=== PATIENT | female | born 1975 | race African-American/Black ===

== ENCOUNTER 2017-06-14 01:11 | Inpatient (IN) | payer MEDICAID, OTHER, SELFPAY ==
[2017-06-14] MEDS ORDERED: Mag-Al 1200 mg/1200 mg/30 ML UDCUP ONE (01:39)
[2017-06-14] MEDS ORDERED: Lidocaine Viscous Sol 2% 15 ml UD Cup ONE (01:39)
[2017-06-14] MEDS ORDERED: Dexamethasone 4 MG TAB ONE (01:44)
[2017-06-14] MEDS ORDERED: Lidocaine 2% Viscous Solution 10 ML, Aluminum & Magnesium Hydroxide 20 ML, Donnatal Eli... SSW SCH (01:45)
[2017-06-14] MEDS ORDERED: Lidocaine 2% Viscous Solution 20 ML, Aluminum & Magnesium Hydroxide 30 ML, Donnatal Eli... SSW SCH (01:45)
[2017-06-14 02:02] LABS: #Eosinphils 0.2 thou/uL (0.0-0.7); #Monocytes 0.8 thou/uL (0.11-0.59); %Basophils 0.2 % (0.0-1.0); %Eosinophils 1.2 % (0.0-10.0); %Lymphocytes 15.3 % (21.0-51.0); %Monocytes 6.1 % (0.0-10.0); %Neutrophils 77.3 % (42.0-75.0); Hemoglobin 12.5 g/dL (12.0-16.0); Mean Corpuscular HGB CONC 33.3 g/dL (32.0-36.0); Mean Corpuscular Hemoglobin 26.8 pg (27.0-31.0); Mean Corpuscular Volume 80.6 fl (81.0-99.0); Mean Platelet Volume 7.1 fL (7.4-10.4); Platelet Count 253 thou/uL (130-400); RBC Distribution Width 15.4 % (11.5-14.5); Red Blood Cell (RBC) Count 4.66 mill/uL (4.20-5.40)
[2017-06-14 02:08] LABS: INR-International Normal Ratio 1.1; PTT 29.4 SEC (22.9-36.1); Prothrombin Time 14.6 SEC (12.0-14.7)
[2017-06-14 02:09] LABS: D-Dimer Test 0.59 *mcg/mL (0.27-0.43)
[2017-06-14 02:28] LABS: ALT (SGPT) 24 U/L (8-55); AST (SGOT) 19 U/L (5-34); Albumin 3.4 g/dL (3.5-5.0); Alkaline Phosphatase 66 U/L (40-150); Anion Gap 14 mmol/L (10-20); BUN (Urea Nitrogen) 16 mg/dL (7.0-18.7); Bilirubin, Total 0.5 mg/dL (0.2-1.2); Calc. Creatinine Clearance 0 mL/min (70-130); Calcium 8.8 mg/dL (7.8-10.44); Carbon Dioxide 22 mmol/L (22-29); Chloride 105 mmol/L (98-107); Estimated GFR-MDRD 87; Globulin 3.7 g/dL (2.4-3.5); Glucose 104 mg/dL (70-105); Potassium 3.5 mmol/L (3.5-5.1); Protein, Total 7.1 g/dL (6.0-8.3); Sodium 137 mmol/L (136-145)
[2017-06-14 03:03] LABS: BHCG - Serum Negative (NEGATIVE); Pregs Control Background? CLEAR/WHITE (CLR/WHITE); Pregs Control Bar Appear? YES (CONTROL BAR)
[2017-06-14] MEDS ORDERED: Azithromycin 500 MG VIAL ONE (04:58)
[2017-06-14 05:39] LABS: Troponin I 0.022 ng/mL (< 0.028)
[2017-06-14 06:49] LABS: Bilirubin Negative (Negative); Blood, Urine Trace (Negative); Clarity CLEAR (Clear); Glucose, Urine (Dipstick) Negative (Negative); Leukocyte Negative (Negative); Nitrite Negative (Negative); Protein, Urine (Dipstick) 30 mg/dL (Neg-Trace)
[2017-06-14 06:51] LABS: Bacteria/HPF None Seen HPF (None Seen); WBC/HPF 0-3 HPF (0-3)
[2017-06-14 07:07] LABS: Hyaline Casts/LPF 0-3 HYALINE CAST LPF (0-3 Hyaline); Manual Microscopic Reviewed? No Path Casts Seen; Renal Epithelial 0-3 HPF (0-3)
--- NOTE | 2017-06-14 08:22 | CT ---
PRELIMINARY REPORT/[facility]/EMERGENCY AFTER HOURS PROCEDURE: EXAM: CT Angiography Chest With Intravenous Contrast CLINICAL HISTORY: 42 years old, female; Signs and symptoms; Shortness of breath; Patient HX: Days cough/congestion/st. No fevers/rashes. Tx bronchitis "in the past" reports "10 stents cardiac in her lifetime". No abd rin n. No recent abx. No recent travel. No prior HX dvt/pe TECHNIQUE: Axial computed tomographic angiography images of the chest with intravenous contrast using pulmonary embolism protocol. CONTRAST: 100 mL of [id number] administered intravenously. COMPARISON: No relevant prior studies available. FINDINGS: Pulmonary arteries: No acute findings. No pulmonary embolism. Aorta: No acute findings. No thoracic aortic aneurysm. Lungs: Multifocal parenchymal infiltrates, most advanced at the right lung apex. Scattered peripheral noncalcified nodules. Pleural space: No acute findings. No significant effusion. No pneumothorax. Heart: Moderate cardiomegaly. No significant pericardial effusion. Bones/joints: No acute fracture. No dislocation. Soft tissues: No acute findings. Lymph nodes: Bulky right hilar and subcarinal adenopathy. Additional prominent mediastinal nodes note d. Upper abdomen: Distended IVC, may reflect poor right heart function. IMPRESSION: Scattered bilateral probable infectious lung infiltrates, most advanced at the right apex. Edema not excluded. Nonspecific scattered lung nodules. No pulmonary embolism. Cardiomegaly with evidence for dysfunction. Nonspecific mediastinal and hilar adenopathy with infectious, inflammatory, and neoplastic etiologies considered. This was reported on prior CT exam of 11.12.2016. Those images are not currently availabl e. Thank you for allowing us to participate in the care of your patient. Dictated and Authenticated by: Silva Valles MD 06/14/2017 4:20 AM Central Time ([place] & [place]) FINAL REPORT CT PULMONARY ANGIOGRAM WITH IV CONTRAST AND 3D POSTPROCESSING: Date: 06/14/17 FINDINGS/IMPRESSION: I agree with the preliminary report given by Kemal. On comparison, lymphadenopathy stable since . Consultation with trust administrative assistant recommended. CODE T. POS: [facility]
--- NOTE | 2017-06-14 08:27 | RAD ---
PORTABLE CHEST ONE VIEW: 06/14/2017 at 1:37 a.m. HISTORY: Dyspnea. FINDINGS/IMPRESSION: Comparison is made with the exam of 12/06/2016. The heart size is borderline. The lungs are expanded without focal areas of consolidation, pneumotho rax, or pleural effusions. POS: [facility]
[2017-06-14] MEDS ORDERED: Bisacodyl 5 MG TAB PO PRN (09:22)
[2017-06-14] MEDS ORDERED: Mag-Al 1200 mg/1200 mg/30 ML UDCUP PO PRN (09:22)
[2017-06-14] MEDS ORDERED: Bisacodyl 10 MG SUPP PR PRN (09:22)
[2017-06-14] MEDS ORDERED: Acetaminophen 650 MG Suppository PR PRN (09:22)
[2017-06-14] MEDS ORDERED: hydrALAZINE 20 MG/ML VIAL SLOW IVP PRN (09:29)
[2017-06-14] MEDS ORDERED: cefTRIAXone\\ROCEPHIN 1 GM in Sodium Chloride 0.9% 100 ML IVPB SCH (09:30)
[2017-06-14 10:23] LABS: Specific Gravity, Urine Greater than 1.060 (1.002-1.036)
--- NOTE | 2017-06-14 12:38 | HP ---
PRIMARY CARE PHYSICIAN: González Vegas M.D. CHIEF COMPLAINT: Cough. HISTORY OF PRESENT ILLNESS: Ms. Tolentino is a pleasant 42-year-old lady who was seen at [facility] on 06/14/2017. She was hospitalized at this facility in 11/2016 for congestive heart failure and non-ST elevation myocardial infarction. She reports that she has had a cough following the discharge. She reports being treated with multipl e courses of antibiotics as outpatient. The latest episode of cough started 4 days ago. She has been coughing with green sputum production. Last night, she coughed a lot and had some chest discomfort. She also reports that she saw blood in the sputum for the very first time. She therefore came to the emergency room. She denies any fevers or chills. She denies any shortness of breath. REVIEW OF SYSTEMS: The following complete review of systems was negative, unless otherwise mentioned in the HPI or below: Constitutional: Weight loss or gain, ability to conduct usual activities. Sk in: Rash, itching. Eyes: Double vision, pain. ENT/Mouth: Nose bleeding, neck stiffness, pain, te nderness. Cardiovascular: Palpitations, dyspnea on exertion, orthopnea. Respiratory: Shortness of breath, wheezing, cough, hemoptysis, fever or night sweats. Gastrointestinal: Poor appetite, abdom inal pain, heartburn, nausea, vomiting, constipation, or diarrhea. Genitourinary: Urgency, frequenc y, dysuria, nocturia. Musculoskeletal: Pain, swelling. Neurologic/Psychiatric: Anxiety, depressio n. Allergy/Immunologic: Skin rash, bleeding tendency. PAST MEDICAL HISTORY: Significant for coronary artery disease, status post PCI with multiple stents, myocardial infarction, hypertension, dyslipidemia, bipolar disorder and anxiety. PAST SURGICAL HISTORY: Significant for spinal tumor removal, hernia repair, section x3 and PCI with coronary stents. ALLERGIES: No known drug allergies. SOCIAL HISTORY: The patient denies tobacco use, alcohol use or recreational drug use. FAMILY HISTORY: Significant for diabetes mellitus, hypertension, and coronary artery disease. CURRENT MEDICATIONS: Aspirin 81 mg daily, atorvastatin 80 mg daily, carvedilol 25 mg 2 times a day, lisinopril 5 mg daily, Plavix 75 mg daily, nitroglycerin p.r.n., Lasix 40 mg daily, and Lyrica 150 mg daily. PHYSICAL EXAMINATION: GENERAL: Ms. Tolentino is awake and alert, not in acute distress. VITAL SIGNS: Blood pressure is 156/103, pulse is 99. She is breathing at rate of 28 and saturating 96% on 2 liters of oxygen. She is afebrile. She is obese. EYES: No scleral icterus. No conjunctival pallor. ENT: Moist mucosal membranes, no oropharyngeal erythema or exudates. NECK: Supple, nontender, normal range of movement. Trachea is midline. RESPIRATORY: Accessory muscles of breathing are mildly active. Chest wall movements are symmetric b ilaterally. LUNGS: Reveals few bibasilar crackles. CARDIOVASCULAR: S1 and S2 are heard, regular. Peripheral pulses palpable. No carotid bruit, no per icardial rub. ABDOMEN: Soft, nontender, bowel sounds heard, no hepatomegaly, no splenomegaly. NEUROLOGIC: Cranial nerves II-XII intact, deep tendon reflexes are 2+. SKIN: No rashes or subcutaneous nodules. MUSCULOSKELETAL: Power is 5/5 in all 4 extremities. PSYCHIATRIC: Normal mood, normal affect, patient is oriented to person, place, and time. LABORATORY DATA: Ms. Tolentino's labs and investigations were reviewed. I reviewed her electrocardiog dewayne, which shows sinus tachycardia, no ST changes to suggest an acute coronary syndrome. I also revi ewed her chest x-ray, which does not show any pulmonary infiltrates. She also had CT angiogram of lv chest, which showed scattered bilateral probable infectious lung infiltrates, most advanced at the right apex, no pulmonary embolism and nonspecific mediastinal and hilar adenopathy with Infectious, i nflammatory and neoplastic etiologies considered, the lymphadenopathy is stable since 11/12/2016. lv has leukocytosis with 13,000 white cells of which 77% are neutrophils, normal hemoglobin, normal pl atelet count, elevated D-dimer of 0.59, INR 1.1, decreased albumin of 3.4, otherwise unremarkable com prehensive metabolic profile, negative serum test, elevated BNP of 1254 and urinalysis that is positive for protein and blood. ASSESSMENT AND PLAN: Ms. Tolentino is a pleasant 42-year-old lady who was seen at [facility] on 06/14/2017. Her problem list includes: 1. Pneumonia: Ms. Tolentino is presenting with pneumonia as evidenced on chest CT scan, although pulm onary edema cannot be ruled out at this time. She has already received ceftriaxone and azithromycin and I will continue the same. She will be admitted to the medical floor. Babak p.r.n. 2. Intrathoracic lymphadenopathy: Stable. I will consult Pulmonology Service for opinion and help with further management. We will check SAUNDRA level to evaluate for sarcoidosis. 3. Coronary artery disease: Appears stable. 4. Dyslipidemia: Continue statin. 5. Hypertension: Monitor vital signs, titrate antihypertensives as needed, continue home medication s. We will also add p.r.n. IV hydralazine. 6. Congestive heart failure: Continue furosemide. Many thanks for allowing me to participate in your patient's care. Please feel free to contact me wi th any questions or concerns. LEVEL OF RISK: High. LEVEL OF COMPLEXITY: High.
[2017-06-14] MEDS ORDERED: ISOVUE-370 76%-LOCM 1 ML ONE (12:57)
[2017-06-14] MEDS: Lidocaine 2% Viscous Solution 20 ML, Aluminum & Magnesium Hydroxide 30 ML, Donnatal Eli... SSW PRN (18:45)
[2017-06-14] MEDS: Atorvastatin Calcium 40 MG TAB PO SCH (21:07)
[2017-06-14] MEDS: Carvedilol 6.25 MG TAB PO SCH (21:07)
[2017-06-14 22:36] VITALS: BMI 39.5
--- NOTE | 2017-06-15 00:29 | CON ---
DATE OF CONSULTATION: 06/14/2017 REASON FOR CONSULTATION: Pneumonia. HISTORY OF PRESENT ILLNESS: The patient is a 42-year-old female, who came to the [facility] today because of cough with productive sputum that has worsened over the last 24 hours. She h ad some blood in her sputum and became concerned. She was hospitalized last spring and then again in last November. She has had intermittent problems with bronchitis since that time. PAST MEDICAL HISTORY: 1. Coronary artery disease. 2. Asthmatic bronchitis. 3. Myocardial infarction. 4. Hypertension. 5. Hyperlipidemia. 6. Bipolar disorder. 7. Anxiety. 8. No history of tuberculosis. PAST SURGICAL HISTORY: 1. Spinal tumor removal. 2. Multiple coronary stent placements - she says 10. 3. Hernia repair. ALLERGIES: None. SOCIAL HISTORY: She quit smoking 7 years ago. Does not consume alcohol or use recreational drugs. She spent about 6 months in custodial many years ago. She says she did not get exposed to tuberculosis th [facility]. FAMILY MEDICAL HISTORY: Remarkable for diabetes mellitus, hypertension, coronary artery disease. MEDICATIONS PRIOR TO ADMISSION: Plavix 75 mg daily, aspirin 81 mg daily, atorvastatin 80 mg daily, c arvedilol 25 mg twice daily, Lasix 40 mg daily and Lyrica 150 mg daily. REVIEW OF SYSTEMS: Twelve-point review of systems otherwise negative. PHYSICAL EXAMINATION: VITAL SIGNS: Temperature 98.2, pulse 91, respirations 18, O2 sat 96% on 2 liters, blood pressure 141 /89. GENERAL: She is awake and alert and in no distress. HEENT: Unremarkable. NECK: Without adenopathy, JVD or bruits. LUNGS: She has bilateral inspiratory crackles with coarse rhonchi. CARDIOVASCULAR: S1, S2 regular, no audible murmur or gallop. ABDOMEN: Soft, nontender, no hepatosplenomegaly. EXTREMITIES: No clubbing, cyanosis. She has 1+ edema from her knees downward to her feet. LABORATORY DATA: Sodium 137, potassium 3.5, chloride 105, CO2 of 22, BUN 16, creatinine 0.8, glucose 104. Troponin is 0.02. BNP 1254. White blood cell count 13, hematocrit 37.5, platelet count 253. Chest x-ray reviewed by myself personally demonstrates cardiomegaly. She has increased pulmonary ar rosa elena diameter in the right hilum. CT of the chest with contrast was performed. This was also review ed personally by myself. She has an infiltrate in the right upper lobe, apex which is nodular, but d oes have air bronchograms. There are nonspecific interstitial changes bilaterally, predominantly at the bases. Echocardiogram performed in 10/2016 demonstrated EF of 25% to 30% with systolic and diast olic dysfunction. ASSESSMENT: 1. Pneumonia - predominantly right upper lobe, also scattered interstitial changes bilaterally. The patient most likely has infectious pneumonia. The hemoptysis is probably from cough in concurrence with current anticoagulation for coronary stents. At this point, I am not very suspicious of this be ing Arsh's or sarcoidosis, although those two entities may have to be looked at in the future if s he does not clear up. 2. Coronary artery disease. 3. Systolic heart failure. RECOMMENDATIONS: I have reviewed the orders, I agree with the azithromycin and Rocephin for treatmen t. She needs to continue her heart failure medications. Hopefully, she can be discharged in a coupl e days. She will need a followup x-ray in several weeks to document resolution. Seventy minutes time was spent performing consultation at this time. Greater than 50% of the time wa s spent either with the patient or on the patient's unit.
[2017-06-15 05:24] LABS: #Monocytes 0.9 thou/uL (0.11-0.59); #Neutrophils 11.3 thou/uL (1.40-6.50); %Basophils 0.3 % (0.0-1.0); %Eosinophils 0.2 % (0.0-10.0); %Lymphocytes 14.3 % (21.0-51.0); %Neutrophils 79.2 % (42.0-75.0); Hemoglobin 12.1 g/dL (12.0-16.0); Mean Corpuscular HGB CONC 32.5 g/dL (32.0-36.0); Mean Corpuscular Hemoglobin 27.3 pg (27.0-31.0); Mean Platelet Volume 7.8 fL (7.4-10.4); Platelet Count 281 thou/uL (130-400); RBC Distribution Width 15.6 % (11.5-14.5); Red Blood Cell (RBC) Count 4.45 mill/uL (4.20-5.40); White Blood Cell (WBC) Count 14.2 thou/uL (4.8-10.8)
[2017-06-15 05:32] LABS: Anion Gap 11 mmol/L (10-20); BUN (Urea Nitrogen) 17 mg/dL (7.0-18.7); Calc. Creatinine Clearance 156 mL/min (70-130); Calcium 9.2 mg/dL (7.8-10.44); Carbon Dioxide 26 mmol/L (22-29); Chloride 104 mmol/L (98-107); Estimated GFR-MDRD Greater than 90; Glucose 109 mg/dL (70-105); Potassium 4.2 mmol/L (3.5-5.1); Sodium 137 mmol/L (136-145)
[2017-06-15] MEDS: Acetaminophen 325 MG TAB PO PRN (05:41)
[2017-06-15] MEDS ORDERED: Azithromycin 500 MG in Sodium Chloride 0.9% 250 ML 250 ML IVPB SCH (06:00)
[2017-06-15] MEDS ORDERED: cefTRIAXone\\ROCEPHIN 1 GM, Syringe 0.4 ML in Sterile Water 9.6 ML SLOW IVP SCH (07:00)
[2017-06-15] MEDS ORDERED: traMADol HCl 50 MG TAB PO SCH (08:00)
[2017-06-15] MEDS: Furosemide 40 MG TAB PO SCH (08:14)
[2017-06-15] MEDS: Lisinopril 10 MG TAB PO SCH (08:14)
[2017-06-15] MEDS: Clopidogrel Bisulfate 75 MG TAB PO SCH (08:14)
[2017-06-15] MEDS: Enoxaparin Sodium 40 MG/0.4 ML SYRINGE SC SCH (08:14)
[2017-06-15] MEDS: Aspirin 81 mg Enteric Coated Tablet PO SCH (08:14)
[2017-06-15] MEDS: Carvedilol 6.25 MG TAB PO SCH ×2 (08:14→20:37)
[2017-06-15] MEDS ORDERED: Ondansetron HCl/PF 4 MG/2 ML Vial SLOW IVP PRN (13:24)
[2017-06-15] MEDS ORDERED: Furosemide 40 MG/4 ML VIAL SLOW IVP SCH (14:15)
--- NOTE | 2017-06-15 14:17 | PRG ---
DATE OF SERVICE: 06/15/2017 SERVICE: Pulmonary Medicine. INTERVAL HISTORY: The patient is doing well from a respiratory standpoint. She is recovering slowly. She is coughing up green sputum. At one point, she had blood streaks with it. That being said, this resolved. She remains a little bit short of breath, but is moving in the right direction for the duration of her hospital stay. OBJECTIVE: VITAL SIGNS: Afebrile, pulse 76, blood pressure 104/65, respirations 20, saturation 97% on 1.5 liters nasal cannula. GENERAL: The patient is awake, alert, no apparent distress. LUNGS: Excellent air entry. There is no prolonged expiratory phase, wheezing, rhonchi, or crackles present. HEART: Normal rate, regular. ABDOMEN: Soft, nontender, nondistended. Bowel sounds positive. MUSCULOSKELETAL: No cyanosis or clubbing. There is no pitting in the bilateral lower extremities. NEUROLOGIC: Grossly nonfocal. LABORATORY DATA: WBC 14.2, hemoglobin 12.1, platelets 281,000. INR 1.1. Basic metabolic profile is otherwise unremarkable. BNP 1254. Blood cultures x2 and urine culture unremarkable. IMAGING: CTA was reviewed. ASSESSMENT: 1. Acute hypoxic respiratory failure. 2. Chronic hypoxic respiratory failure. PLAN: We will diurese the patient. Other supportive measures will be continued. Pulmonary Critical Care will continue to follow while she remains in this location, but from my perspective in 24-48 hours, if she is doing well , we can consider her for transition out of the hospital. Pulmonary Critical Care will continue to follow in this location. MIKE
[2017-06-15] MEDS ORDERED: Benzonatate 100 MG CAP PO SCH (15:00)
--- NOTE | 2017-06-15 16:46 | RAD ---
ABDOMEN TWO VIEW 06/15/17 HISTORY: Abdominal pain. COMPARISON: None. FINDINGS: On the upright view there is no free air under the hemidiaphragms. No dilated air filled loops in large or small bowel. No abnormal calcifications projecting over the r enal shadows. There are phleboliths in the pelvis. IMPRESSION: No acute intra-abdominal abnormality. POS: [facility]
--- NOTE | 2017-06-15 17:15 | PDOC.PN ---
- Subjective Encounter Start Date: 06/15/17 Encounter Start Time: 07:20 Pt seen for followup re: pneumonia. Denies chest pain. Has cough, sputum. No nausea or vomiting. No constipation. Has abdo discomfort, unable to explain further. - Objective MAR Reviewed: Yes Vital Signs & Weight: Vital Signs (12 hours) Temp Pulse Resp BP BP Pulse Ox 06/15/17 16:27 97.5 F L 77 20 102/58 L 2 L 06/15/17 16:01 100 06/15/17 15:54 86 20 06/15/17 11:56 97.4 F L 76 20 104/65 97 06/15/17 08:07 96.9 F L 94 20 124/85 97 06/15/17 08:00 96.9 F L 94 20 97 Weight Weight 231 lb 9.6 oz I&O: 06/14/17 06/15/17 06/16/17 06:59 06:59 06:59 Intake Total 600 Output Total 700 Balance -100 Result Diagrams: 06/15/17 04:09 06/15/17 04:09 Additional Labs: Accuchecks 06/14/17 18:08 POC Glucose 121 H EKG Reviewed by me: Yes (Tele: NSR) Phys Exam - Physical Examination Obese HEENT: PERRLA, moist MMs, sclera anicteric, oral pharynx no lesions Neck: no nodes, no JVD, supple, full ROM Respiratory: no rales, no rhonchi, wheezing present Cardiovascular: RRR, no rub Gastrointestinal: soft, non-tender, positive bowel sounds distention+ Musculoskeletal: pulses present Neurological: moves all 4 limbs Psychiatric: normal affect, A&O x 3 Dx/Plan (1) CAP (community acquired pneumonia) Code(s): J18.9 - PNEUMONIA, UNSPECIFIED ORGANISM Status: Acute Comment: Continue antibiotics as below. (2) Abdominal pain Code(s): R10.9 - UNSPECIFIED ABDOMINAL PAIN Status: Acute Comment: Check abdo x-rays (3) Bipolar 1 disorder Code(s): F31.9 - BIPOLAR DISORDER, UNSPECIFIED Status: Chronic (4) Coronary artery disease Code(s): I25.10 - ATHSCL HEART DISEASE OF [place] CORONARY ARTERY W/O ANG PCTRS Status: Chronic Comment: stable (5) Hyperlipidemia Code(s): E78.5 - HYPERLIPIDEMIA, UNSPECIFIED Status: Chronic (6) Hypertension Code(s): I10 - ESSENTIAL (PRIMARY) HYPERTENSION Status: Chronic Qualifiers: Hypertension type: essential hypertension Qualified Code(s): I10 - Essential (primary) hypertension Comment: Monitor vital signs, titrate antihypertensives as needed - Plan continue antibiotics, out of bed/ambulate, DVT proph w/lovenox * . Review of Systems - Review of Systems Constitutional: negative: fever, chills, sweats, weakness, malaise Respiratory: Cough, Shortness of Breath, SOB with Excertion, Sputum. negative: Dry, Hemoptysis, Pleuritic Pain, Wheezing Cardiovascular: negative: chest pain, palpitations, orthopnea, paroxysmal nocturnal dyspnea, edema, light headedness Gastrointestinal: Abdominal Pain. negative: Nausea, Vomiting, Diarrhea, Constipation, Melena, Hematochezia Genitourinary: negative: Dysuria, Frequency, Incontinence, Hematuria, Retention - Medications/Allergies Allergies/Adverse Reactions: Allergies Allergy/AdvReac Type Severity Reaction Status Date / Time levofloxacin [From [facility]] Allergy Verified 07/25/16 00:43 Medications: Current Medications Acetaminophen (Tylenol) 650 mg PO Q4H PRN PRN Reason: Headache/Fever or Pain Last Admin: 06/15/17 05:41 Dose: 650 mg Acetaminophen (Tylenol) [address] Q4H PRN PRN Reason: Headache/Fever or Pain Al Hydroxide/Mg Hydroxide (Maalox) 30 ml PO Q6H PRN PRN Reason: Heartburn or Indigestion Albuterol/Ipratropium (Duoneb) 3 ml NEB [id number] [facility] Aspirin (Ecotrin) 81 mg PO DAILY [facility] Last Admin: 06/15/17 08:14 Dose: 81 mg Atorvastatin Calcium (Lipitor) 80 mg PO HS [facility] Last Admin: 06/14/17 21:07 Dose: 80 mg Azithromycin (Zithromax) 500 mg PO DAILY [facility] Stop: 06/18/17 09:01 Bisacodyl (Dulcolax) 10 mg PO DAILYPRN PRN PRN Reason: Constipation Bisacodyl (Dulcolax) [address] Q24H PRN PRN Reason: Constipation Carvedilol (Coreg) 6.25 mg PO BID [facility] Last Admin: 03/30/18 08:14 Dose: 6.25 mg Cefdinir (Omnicef) 300 mg PO BID [facility] Stop: 06/18/17 21:01 Clopidogrel Bisulfate (Plavix) 75 mg PO DAILY [facility] Last Admin: 06/15/17 08:14 Dose: 75 mg Lidocaine HCl 20 ml/ Al Hydroxide/Mg Hydroxide 30 ml/Atropine/Hyoscyam/Phenobarb /Scopol 32.4 mg 0 ml SSW Q8H PRN PRN Reason: . Last Admin: 06/14/17 18:45 Dose: 30 dose Enoxaparin Sodium (Lovenox) 40 mg SC 0900 [facility] Last Admin: 06/15/17 08:14 Dose: 40 mg Furosemide (Lasix) 40 mg PO DAILY-[facility] Last Admin: 06/15/17 08:14 Dose: 40 mg Hydralazine HCl (Apresoline) 10 mg SLOW IVP Q6H PRN PRN Reason: SBP Greater Than 170 Lisinopril (Zestril) 10 mg PO DAILY [facility] Last Admin: 06/15/17 08:14 Dose: 10 mg Ondansetron HCl (Zofran) 4 mg SLOW IVP Q6H PRN PRN Reason: Nausea/Vomiting Last Admin: 06/15/17 15:04 Dose: 4 mg Pantoprazole Sodium (Protonix) 40 mg PO DAILY [facility] Last Admin: 06/15/17 08:14 Dose: 40 mg
[2017-06-15] MEDS: Cefdinir 300 MG CAP PO SCH (20:37)
[2017-06-15] MEDS: Benzonatate 100 MG CAP PO SCH (20:37)
[2017-06-15] MEDS: Atorvastatin Calcium 40 MG TAB PO SCH (20:37)
[2017-06-15] MEDS: Lidocaine 2% Viscous Solution 20 ML, Aluminum & Magnesium Hydroxide 30 ML, Donnatal Eli... SSW PRN (21:23)
[2017-06-16 05:35] LABS: #Basophils 0.1 thou/uL (0.0-0.2); #Eosinphils 0.2 thou/uL (0.0-0.7); #Lymphocytes 3.3 thou/uL (1.20-3.40); #Monocytes 0.9 thou/uL (0.11-0.59); #Neutrophils 6.9 thou/uL (1.40-6.50); %Basophils 0.6 % (0.0-1.0); %Eosinophils 1.7 % (0.0-10.0); %Monocytes 8.2 % (0.0-10.0); %Neutrophils 60.5 % (42.0-75.0); Hemoglobin 11.6 g/dL (12.0-16.0); Mean Corpuscular HGB CONC 31.7 g/dL (32.0-36.0); Mean Corpuscular Hemoglobin 26.1 pg (27.0-31.0); Mean Corpuscular Volume 82.5 fl (81.0-99.0); Mean Platelet Volume 7.5 fL (7.4-10.4); Platelet Count 284 thou/uL (130-400); RBC Distribution Width 15.7 % (11.5-14.5); Red Blood Cell (RBC) Count 4.46 mill/uL (4.20-5.40); White Blood Cell (WBC) Count 11.4 thou/uL (4.8-10.8)
[2017-06-16 06:01] LABS: Anion Gap 12 mmol/L (10-20); BUN (Urea Nitrogen) 23 mg/dL (7.0-18.7); Calc. Creatinine Clearance 155 mL/min (70-130); Calcium 8.7 mg/dL (7.8-10.44); Carbon Dioxide 24 mmol/L (22-29); Chloride 102 mmol/L (98-107); Estimated GFR-MDRD Greater than 90; Glucose 94 mg/dL (70-105); Phosphorus 4.9 mg/dL (2.3-4.7); Potassium 4.4 mmol/L (3.5-5.1); Sodium 134 mmol/L (136-145)
[2017-06-16] MEDS: Furosemide 40 MG TAB PO SCH (08:18)
[2017-06-16] MEDS: Lisinopril 10 MG TAB PO SCH (08:18)
[2017-06-16] MEDS: Carvedilol 6.25 MG TAB PO SCH ×2 (08:19→20:21)
[2017-06-16] MEDS: Cefdinir 300 MG CAP PO SCH ×2 (08:19→20:21)
[2017-06-16] MEDS: Benzonatate 100 MG CAP PO SCH ×2 (08:19→16:20)
[2017-06-16] MEDS: Clopidogrel Bisulfate 75 MG TAB PO SCH (08:19)
[2017-06-16] MEDS: Enoxaparin Sodium 40 MG/0.4 ML SYRINGE SC SCH (08:19)
[2017-06-16] MEDS: Aspirin 81 mg Enteric Coated Tablet PO SCH (08:19)
[2017-06-16] MEDS: Azithromycin 250 MG TAB PO SCH (08:21)
[2017-06-16] MEDS: Diabetic Tussin 200 MG/10 ML UDCUP PO PRN ×3 (11:59→20:21)
--- NOTE | 2017-06-16 15:39 | PDOC.PN ---
- Subjective Encounter Start Date: 06/16/17 Encounter Start Time: 07:20 Pt seen for followup re: pneumonia. Denies chest pain. Reports cough, sputum. - Objective MAR Reviewed: Yes Vital Signs & Weight: Vital Signs (12 hours) Temp Pulse Resp BP Pulse Ox 06/16/17 13:37 79 16 06/16/17 11:53 98 F 73 20 103/58 L 95 06/16/17 07:23 96.6 F L 76 20 98 06/16/17 07:20 96.6 F L 76 20 98 06/16/17 06:38 98 06/16/17 06:35 76 12 06/16/17 04:00 97.5 F L 81 18 123/69 99 Weight Weight 231 lb 9.6 oz I&O: 06/15/17 06/16/17 06/17/17 06:59 06:59 06:59 Intake Total 2240 Output Total 1600 Balance 640 Result Diagrams: 06/16/17 04:23 06/16/17 04:23 EKG Reviewed by me: Yes (Tele: NSR) Phys Exam - Physical Examination Obese HEENT: PERRLA, moist MMs, sclera anicteric, oral pharynx no lesions Neck: no nodes, no JVD, supple, full ROM Respiratory: no wheezing, no rales, no rhonchi Cardiovascular: RRR, no rub Gastrointestinal: soft, non-tender, positive bowel sounds Neurological: moves all 4 limbs Psychiatric: normal affect, A&O x 3 Skin: no rash Dx/Plan (1) CAP (community acquired pneumonia) Code(s): J18.9 - PNEUMONIA, UNSPECIFIED ORGANISM Status: Acute Comment: Continue antibiotics (2) UTI (urinary tract infection) Status: Acute Comment: with strep agalactiae, continue antibiotics. (3) Abdominal pain Code(s): R10.9 - UNSPECIFIED ABDOMINAL PAIN Status: Acute Comment: Abdo x- rays show phleboliths, nil acute. Discussed with Dr. Kendrick on Sunday. he can see her on Sunday if she is still in hospital (we need to let him know). Alternatively, she can followup with him as out pt for abdo pain (pt has h/o surgeries by dr. Kendrick). (4) Bipolar 1 disorder Code(s): F31.9 - BIPOLAR DISORDER, UNSPECIFIED Status: Chronic (5) Coronary artery disease Code(s): I25.10 - ATHSCL HEART DISEASE OF [place] CORONARY ARTERY W/O ANG PCTRS Status: Chronic Comment: stable (6) Hyperlipidemia Code(s): E78.5 - HYPERLIPIDEMIA, UNSPECIFIED Status: Chronic (7) Hypertension Code(s): I10 - ESSENTIAL (PRIMARY) HYPERTENSION Status: Chronic Qualifiers: Hypertension type: essential hypertension Qualified Code(s): I10 - Essential (primary) hypertension Comment: titrate antihypertensives as needed - Plan continue antibiotics, out of bed/ambulate * . Review of Systems - Review of Systems Constitutional: negative: fever, chills, sweats, weakness, malaise ENT: negative: Ear Pain, Ear Discharge, Nose Pain, Nose Discharge, Nose Congestion, Mouth Pain, Mouth Swelling, Throat Pain, Throat Swelling Respiratory: Cough, Sputum. negative: Dry, Shortness of Breath, Hemoptysis, SOB with Excertion, Pleuritic Pain, Wheezing Cardiovascular: negative: chest pain, palpitations, orthopnea, paroxysmal nocturnal dyspnea, edema, light headedness Gastrointestinal: Abdominal Pain. negative: Nausea, Vomiting, Diarrhea, Constipation, Melena, Hematochezia - Medications/Allergies Allergies/Adverse Reactions: Allergies Allergy/AdvReac Type Severity Reaction Status Date / Time [facility] Allergy Verified 07/25/16 00:43 Medications: Current Medications Acetaminophen (Tylenol) 650 mg PO Q4H PRN PRN Reason: Headache/Fever or Pain Last Admin: 06/15/17 05:41 Dose: 650 mg Acetaminophen (Tylenol) 650 mg NE Q4H PRN PRN Reason: Headache/Fever or Pain Al Hydroxide/Mg Hydroxide (Maalox) 30 ml PO Q6H PRN PRN Reason: Heartburn or Indigestion Albuterol/Ipratropium (Duoneb) 3 ml NEB [id number] [facility] Last Admin: 06/16/17 13:37 Dose: 3 ml Aspirin (Ecotrin) 81 mg PO DAILY [facility] Last Admin: 06/16/17 08:19 Dose: 81 mg Atorvastatin Calcium (Lipitor) 80 mg PO HS [facility] Last Admin: 06/15/17 20:37 Dose: 80 mg Azithromycin (Zithromax) 500 mg PO DAILY [facility] Stop: 06/18/17 09:01 Last Admin: 06/16/17 08:21 Dose: Not Given Benzonatate (Tessalon) 100 mg PO TID [facility] Last Admin: 06/16/17 08:19 Dose: Not Given Bisacodyl (Dulcolax) 10 mg PO DAILYPRN PRN PRN Reason: Constipation Bisacodyl (Dulcolax) 10 mg NE Q24H PRN PRN Reason: Constipation Carvedilol (Coreg) 6.25 mg PO BID [facility] Last Admin: 06/16/17 08:19 Dose: 6.25 mg Cefdinir (Omnicef) 300 mg PO BID [facility] Stop: 06/18/17 21:01 Last Admin: 06/16/17 08:19 Dose: 300 mg Clopidogrel Bisulfate (Plavix) 75 mg PO DAILY [facility] Last Admin: 06/16/17 08:19 Dose: 75 mg Lidocaine HCl 20 ml/ Al Hydroxide/Mg Hydroxide 30 ml/Atropine/Hyoscyam/Phenobarb /Scopol 32.4 mg 0 ml SSW Q8H PRN PRN Reason: . Last Admin: 06/15/17 21:23 Dose: 1 dose Enoxaparin Sodium (Lovenox) 40 mg SC 0900 [facility] Last Admin: 06/16/17 08:19 Dose: 40 mg Furosemide (Lasix) 40 mg PO DAILY-[facility] Last Admin: 06/16/17 08:18 Dose: 40 mg Guaifenesin (Robitussin Sf) 100 mg PO Q4H PRN PRN Reason: Cough Last Admin: 06/16/17 11:59 Dose: 100 mg Hydralazine HCl (Apresoline) 10 mg SLOW IVP Q6H PRN PRN Reason: SBP Greater Than 170 Lisinopril (Zestril) 10 mg PO DAILY [facility] Last Admin: 06/16/17 08:18 Dose: 10 mg Ondansetron HCl (Zofran) 4 mg SLOW IVP Q6H PRN PRN Reason: Nausea/Vomiting Last Admin: 06/15/17 15:04 Dose: 4 mg Pantoprazole Sodium (Protonix) 40 mg PO DAILY [facility] Last Admin: 06/16/17 08:19 Dose: 40 mg
[2017-06-16] MEDS ORDERED: Furosemide 40 MG/4 ML VIAL SLOW IVP SCH (19:45)
--- NOTE | 2017-06-16 20:04 | PRG ---
DATE OF SERVICE: 06/16/2017 SERVICE: Pulmonary medicine. INTERVAL HISTORY: The patient denies feeling much better compared to presentation. She is coughing up green sputum. She still wheezes. She has lower extremity swelling, which has gone not away. Oth erwise, there has been no interval change to her condition. PHYSICAL EXAMINATION: VITAL SIGNS: Afebrile, pulse 91, blood pressure 124/74, respirations 20, saturation 97% on room air. GENERAL: The patient is awake and alert, in no apparent distress. LUNGS: Decent air entry. There is a prolonged expiratory phase with wheezing present. No crackles or rhonchi appreciated. HEART: Normal rate, regular. ABDOMEN: Soft, nontender, nondistended. Bowel sounds are positive. MUSCULOSKELETAL: No cyanosis or clubbing. There is a 1+ pitting in the bilateral lower extremities. NEUROLOGIC: Grossly nonfocal. LABORATORY DATA: WBC 11.4, hemoglobin 11.6, platelets 284,000. INR 1.1. Sodium 134. Basic metabol ic profile is otherwise unremarkable. Phosphorus 4.9, magnesium 2.0. Urine is growing Streptococcus agalactia. Blood cultures x2 remain unremarkable. IMAGING: None. ASSESSMENT: 1. Acute hypoxic respiratory failure. 2. Acute on chronic systolic and diastolic heart failure. 3. Community-acquired pneumonia, possible. PLAN: We will continue to diurese the patient until she returns to euvolemia. We will continue our antibiotics and nebulized medications. Pulmonary Critical Care will continue to follow while the doctors hospital ient remains in this location.
[2017-06-16] MEDS: Atorvastatin Calcium 40 MG TAB PO SCH (20:21)
[2017-06-16] MEDS: Lidocaine 2% Viscous Solution 20 ML, Aluminum & Magnesium Hydroxide 30 ML, Donnatal Eli... SSW PRN (20:23)
[2017-06-17] MEDS: Diabetic Tussin 200 MG/10 ML UDCUP PO PRN ×3 (00:39→22:11)
[2017-06-17] MEDS: Acetaminophen 325 MG TAB PO PRN (00:41)
[2017-06-17 05:19] LABS: #Basophils 0.1 thou/uL (0.0-0.2); #Eosinphils 0.2 thou/uL (0.0-0.7); #Monocytes 0.6 thou/uL (0.11-0.59); #Neutrophils 6.2 thou/uL (1.40-6.50); %Basophils 0.8 % (0.0-1.0); %Eosinophils 1.6 % (0.0-10.0); %Lymphocytes 29.5 % (21.0-51.0); %Monocytes 6.3 % (0.0-10.0); %Neutrophils 61.8 % (42.0-75.0); Hemoglobin 11.9 g/dL (12.0-16.0); Mean Corpuscular HGB CONC 32.5 g/dL (32.0-36.0); Mean Corpuscular Hemoglobin 26.6 pg (27.0-31.0); Mean Corpuscular Volume 81.9 fl (81.0-99.0); Mean Platelet Volume 7.3 fL (7.4-10.4); Platelet Count 321 thou/uL (130-400); RBC Distribution Width 15.6 % (11.5-14.5); Red Blood Cell (RBC) Count 4.49 mill/uL (4.20-5.40); White Blood Cell (WBC) Count 10.1 thou/uL (4.8-10.8)
[2017-06-17 05:34] LABS: Anion Gap 12 mmol/L (10-20); BUN (Urea Nitrogen) 22 mg/dL (7.0-18.7); Calc. Creatinine Clearance 153 mL/min (70-130); Calcium 8.7 mg/dL (7.8-10.44); Carbon Dioxide 28 mmol/L (22-29); Chloride 100 mmol/L (98-107); Estimated GFR-MDRD Greater than 90; Glucose 91 mg/dL (70-105); Magnesium 1.9 mg/dL (1.6-2.6); Phosphorus 3.7 mg/dL (2.3-4.7); Potassium 4.1 mmol/L (3.5-5.1); Sodium 136 mmol/L (136-145)
[2017-06-17] MEDS ORDERED: Nitroglycerin 0.4 MG TAB (25 Tab Bottle) SL PRN (07:35)
[2017-06-17] MEDS ORDERED: PROVENTIL INHALER 6.7 G (200 INHALATIONS) INH PRN (07:35)
[2017-06-17] MEDS ORDERED: Sodium Chloride 0.9% 10 ML ONE (07:36)
[2017-06-17] MEDS: Lisinopril 5 MG TAB PO SCH (08:34)
[2017-06-17] MEDS: Spironolactone 25 MG TAB PO SCH (08:34)
[2017-06-17] MEDS: Azithromycin 250 MG TAB PO SCH (08:35)
[2017-06-17] MEDS: Aspirin 81 mg Enteric Coated Tablet PO SCH (08:35)
[2017-06-17] MEDS: Furosemide 40 MG/4 ML VIAL SLOW IVP SCH (08:36)
[2017-06-17] MEDS: Clopidogrel Bisulfate 75 MG TAB PO SCH (08:36)
[2017-06-17] MEDS: Carvedilol 6.25 MG TAB PO SCH ×2 (08:36→22:25)
[2017-06-17] MEDS: Cefdinir 300 MG CAP PO SCH ×2 (08:36→22:26)
[2017-06-17] MEDS: Furosemide 40 MG TAB PO SCH (08:37)
[2017-06-17] MEDS: Enoxaparin Sodium 40 MG/0.4 ML SYRINGE SC SCH (08:41)
--- NOTE | 2017-06-17 11:23 | PDOC.PN ---
- Subjective Encounter Start Date: 06/17/17 Encounter Start Time: 07:40 -: old records requested/rev pt has cough, she does not feel normal, no fever Patient seen and examined. No new complaints. No overnight events - Objective MAR Reviewed: Yes Vital Signs & Weight: Vital Signs (12 hours) Temp Pulse Resp BP BP Pulse Ox 06/17/17 08:36 121/84 06/17/17 08:34 78 121/84 06/17/17 08:29 97.6 F 78 16 121/84 95 06/17/17 07:51 74 16 06/17/17 04:00 97.8 F 78 17 108/72 93 L 06/17/17 02:30 93 L 06/16/17 23:32 93 L Weight Weight 231 lb 9.6 oz I&O: 06/16/17 06/17/17 06/18/17 06:59 06:59 06:59 Intake Total 2240 600 Output Total 1600 1000 Balance 640 -400 Result Diagrams: 06/17/17 04:28 06/17/17 04:28 EKG Reviewed by me: Yes Phys Exam - Physical Examination Constitutional: NAD HEENT: PERRLA, moist MMs, sclera anicteric Neck: no JVD, supple Respiratory: wheezing present coarse sound bilateral Cardiovascular: RRR, no significant murmur, no rub Gastrointestinal: soft, non-tender, no distention, positive bowel sounds Musculoskeletal: pulses present, edema present Neurological: non-focal, normal sensation, moves all 4 limbs Psychiatric: normal affect, A&O x 3 Skin: no rash, normal turgor Dx/Plan - Plan cont current plan of care, continue antibiotics, respiratory therapy * will get chest xray * add solumedrol 20 mg iv q 8hrly * continue omnicef and azithromycin * continue IV lasix * medication reviewed as below * symptomatic treatment. Review of Systems - Review of Systems Constitutional: negative: fever, chills, sweats, weakness, malaise, other Eyes: negative: Pain, Vision Change, Conjunctivae Inflammation, Eyelid Inflammation, Redness, Other ENT: negative: Ear Pain, Ear Discharge, Nose Pain, Nose Discharge, Nose Congestion, Mouth Pain, Mouth Swelling, Throat Pain, Throat Swelling, Other Respiratory: Cough, Shortness of Breath, SOB with Excertion, Wheezing. negative : Dry, Hemoptysis, Pleuritic Pain, Sputum Cardiovascular: negative: chest pain, palpitations, orthopnea, paroxysmal nocturnal dyspnea, edema, light headedness, other Gastrointestinal: negative: Nausea, Vomiting, Abdominal Pain, Diarrhea, Constipation, Melena, Hematochezia, Other Genitourinary: negative: Dysuria, Frequency, Incontinence, Hematuria, Retention , Other Musculoskeletal: negative: Neck Pain, Shoulder Pain, Arm Pain, Back Pain, Hand Pain, Leg Pain, Foot Pain, Other Skin: negative: Rash, Lesions, Blade, Bruising, Other - Medications/Allergies Allergies/Adverse Reactions: Allergies Allergy/AdvReac Type Severity Reaction Status Date / Time [facility] [[facility] Allergy Verified 07/25/16 00:43 Medications: Current Medications Acetaminophen (Tylenol) 650 mg PO Q4H PRN PRN Reason: Headache/Fever or Pain Last Admin: 06/17/17 00:41 Dose: 650 mg Acetaminophen (Tylenol) 650 mg OK Q4H PRN PRN Reason: Headache/Fever or Pain Al Hydroxide/Mg Hydroxide (Maalox) 30 ml PO Q6H PRN PRN Reason: Heartburn or Indigestion Albuterol Sulfate (Proventil Hfa) 2 puff INH Q6H PRN PRN Reason: SOB &/or Wheezing Albuterol/Ipratropium (Duoneb) 3 ml NEB [id number] [facility] Last Admin: 06/17/17 07:51 Dose: 3 ml Aspirin (Ecotrin) 81 mg PO DAILY [facility] Last Admin: 06/17/17 08:35 Dose: 81 mg Atorvastatin Calcium (Lipitor) 80 mg PO HS [facility] Last Admin: 06/16/17 20:21 Dose: 80 mg Azithromycin (Zithromax) 500 mg PO DAILY [facility] Stop: 06/18/17 09:01 Last Admin: 06/17/17 08:35 Dose: 500 mg Bisacodyl (Dulcolax) 10 mg PO DAILYPRN PRN PRN Reason: Constipation Bisacodyl (Dulcolax) 10 mg OK Q24H PRN PRN Reason: Constipation Carvedilol (Coreg) 6.25 mg PO BID [facility] Last Admin: 06/17/17 08:36 Dose: 6.25 mg Cefdinir (Omnicef) 300 mg PO BID [facility] Stop: 06/18/17 21:01 Last Admin: 06/17/17 08:36 Dose: 300 mg Clopidogrel Bisulfate (Plavix) 75 mg PO DAILY [facility] Last Admin: 06/17/17 08:36 Dose: 75 mg Lidocaine HCl 20 ml/ Al Hydroxide/Mg Hydroxide 30 ml/Atropine/Hyoscyam/Phenobarb /Scopol 32.4 mg 0 ml SSW Q8H PRN PRN Reason: . Last Admin: 06/16/17 20:23 Dose: 1 dose Enoxaparin Sodium (Lovenox) 40 mg SC 0900 [facility] Last Admin: 06/17/17 08:41 Dose: Not Given Furosemide (Lasix) 40 mg PO DAILY-AC [facility] Last Admin: 06/17/17 08:37 Dose: Not Given Furosemide (Lasix) 40 mg SLOW IVP DAILY [facility] Last Admin: 06/17/17 08:36 Dose: 40 mg Guaifenesin (Robitussin Sf) 100 mg PO Q4H PRN PRN Reason: Cough Last Admin: 06/17/17 04:41 Dose: 100 mg Hydralazine HCl (Apresoline) 10 mg SLOW IVP Q6H PRN PRN Reason: SBP Greater Than 170 Lisinopril (Zestril) 5 mg PO DAILY [facility] Last Admin: 06/17/17 08:34 Dose: 5 mg Methylprednisolone Sodium Succinate (Solu-Medrol) 20 mg IVP Q8H [facility] Nitroglycerin (Nitrostat) 0.4 mg SL Q5MIN PRN PRN Reason: Chest Pain Ondansetron HCl (Zofran) 4 mg SLOW IVP Q6H PRN PRN Reason: Nausea/Vomiting Last Admin: 06/15/17 15:04 Dose: 4 mg Pantoprazole Sodium (Protonix) 40 mg PO DAILY [facility] Last Admin: 06/17/17 08:34 Dose: 40 mg Sodium Chloride (Flush - Normal Saline) 10 ml IVF Q12HR [facility] Last Admin: 06/17/17 08:38 Dose: 10 ml Sodium Chloride (Flush - Normal Saline) 10 ml IVF PRN PRN PRN Reason: Saline Flush Spironolactone (Aldactone) 25 mg PO QAM-WM [facility] Last Admin: 06/17/17 08:34 Dose: 25 mg
--- NOTE | 2017-06-17 12:26 | RAD ---
RADIOGRAPH CHEST 2 VIEWS: Date: 06/17/17. Time: 11:25 a.m. HISTORY: A 42-year-old female with diagnosis of pneumonia. COMPARISON: 06/14/17. FINDINGS: Mild cardiomegaly appears somewhat smaller than on the previous study. There continues to be promine nt interstitial markings diffusely, and mild pulmonary vascular engorgement in the upper lobes. No p leural effusion or pneumothorax. No consolidation. There is a small focal airspace density at the r ight medial base (lower lobe) on the frontal view. The CT pulmonary angiogram of 06/14/17 demonstrate d multifocal pulmonary densities, especially a right upper lobe airspace density, that was not appare nt on the plain chest radiograph of the same day. IMPRESSION: 1. Interval improvement in the cardiomegaly. 2. Prominent interstitial markings. 3. The multifocal small infiltrates, especially the prominent right upper lobe infiltrate, demonstra tiffanie on the CT angiogram of 06/14/17, are not well demonstrated on plain radiographs. RASHAD [] POS: CRICKET
--- NOTE | 2017-06-17 20:21 | PRG ---
DATE OF SERVICE: 06/17/2017 SERVICE: Pulmonary Medicine. INTERVAL HISTORY: The patient is doing okay from a respiratory standpoint. Her breathing is a littl e less labored today. Her cough is improving and she does not bring up nearly as much sputum. We ta lked about sleep apnea. She screens positive for it. OBJECTIVE: VITAL SIGNS: Afebrile, pulse 78, blood pressure 109/77, respirations 16, saturation 92% on 2 liters nasal cannula. GENERAL: The patient is awake, alert, in no apparent distress. LUNGS: Improved air entry. There is a little prolonged expiratory phase. Rhonchi are present, but much less severe. There is less wheezing. HEART: Normal rate, regular. ABDOMEN: Soft, nontender, nondistended. Bowel sounds positive. MUSCULOSKELETAL: No cyanosis or clubbing. There is 1+ pitting in the bilateral lower extremities. GENITOURINARY: No Negron. NEUROLOGIC: Grossly nonfocal. LABORATORY DATA: WBC 10.1, hemoglobin 11.9, platelets 321,000. INR 1.1. Basic metabolic profile is essentially unremarkable. Magnesium and phosphorus fall within normal limits. BNP is down trending to 341. Urine is growing Strep species. IMAGING: Chest x-ray demonstrates interval improvement in the cardiomegaly. There is still prominen t interstitial markings and a multifocal infiltrates. ASSESSMENT: 1. Acute hypoxic respiratory failure. 2. Acute on chronic systolic and diastolic heart failure. 3. Community-acquired pneumonia, possible. PLAN: We will continue antibiotics and nebulized medications. We will continue to diurese the patie nt until she returns to euvolemia, which she taken a step towards today. Pulmonary Critical Care karina l continue to follow for the time being. Ultimately, she will require repeat imaging in the outpatie nt procedure when she returns to euvolemia. She may benefit from outpatient workup of obstructive sl eep apnea.
[2017-06-17] MEDS ORDERED: Atorvastatin Calcium 20 MG TAB PO SCH (21:00)
[2017-06-18] MEDS: Furosemide 40 MG TAB PO SCH ×2 (06:49→06:50)
--- NOTE | 2017-06-18 09:07 | PRG ---
DATE OF SERVICE: 06/18/2017 She complains of a cough, it is not as productive as it was. PHYSICAL EXAMINATION: VITAL SIGNS: His temperature is 97.7, pulse 77, respirations 15, O2 sat 99%, blood pressure 124/73. HEENT: Unremarkable. NECK: No JVD. LUNGS: Clear without wheezing or rhonchi. CARDIAC: S1 and S2 regular. ABDOMEN: Soft. EXTREMITIES: No edema. LABORATORY DATA: No labs were obtained today. ASSESSMENT: 1. Right upper lobe pneumonia. 2. Congestive heart failure. PLAN: She has been switched over to oral antibiotics. She is continuing diuresis. She does seem st able for discharge to home with continued oral antibiotics for a total of 7 days. She will need a fo llow up film in about 4 weeks.
[2017-06-18] MEDS: Spironolactone 25 MG TAB PO SCH (09:22)
[2017-06-18] MEDS: Carvedilol 6.25 MG TAB PO SCH (09:22)
[2017-06-18] MEDS: Cefdinir 300 MG CAP PO SCH (09:22)
[2017-06-18] MEDS: Lisinopril 5 MG TAB PO SCH (09:23)
[2017-06-18] MEDS: Clopidogrel Bisulfate 75 MG TAB PO SCH (09:23)
[2017-06-18] MEDS: Furosemide 40 MG/4 ML VIAL SLOW IVP SCH (09:23)
[2017-06-18] MEDS: Enoxaparin Sodium 40 MG/0.4 ML SYRINGE SC SCH (09:23)
[2017-06-18] MEDS: Azithromycin 250 MG TAB PO SCH (09:23)
[2017-06-18] MEDS: Aspirin 81 mg Enteric Coated Tablet PO SCH (09:23)
--- NOTE | 2017-06-18 10:19 | PDOC.PN ---
- Subjective Encounter Start Date: 06/18/17 Encounter Start Time: 08:00 Patient seen and examined. No new complaints. No overnight events - Objective MAR Reviewed: Yes Vital Signs & Weight: Vital Signs (12 hours) Temp Pulse Resp BP BP Pulse Ox 06/18/17 07:14 77 15 99 06/18/17 05:08 94 L 06/18/17 04:00 97.7 F 78 14 124/73 93 L 06/17/17 23:14 93 L 06/17/17 22:25 121/73 Weight Weight 231 lb 9.6 oz I&O: 06/17/17 06/18/17 06/19/17 06:59 06:59 06:59 Intake Total 600 1500 Output Total 1000 2600 Balance -400 -1100 Result Diagrams: 06/17/17 04:28 06/17/17 04:28 Radiology Reviewed by me: Yes (chest xray) EKG Reviewed by me: Yes (nsvt) Phys Exam - Physical Examination Constitutional: NAD HEENT: PERRLA, moist MMs, sclera anicteric Neck: no JVD, supple Respiratory: no wheezing, no rhonchi Cardiovascular: RRR, no significant murmur, no rub Gastrointestinal: soft, non-tender, no distention, positive bowel sounds Musculoskeletal: pulses present, edema present Neurological: non-focal, normal sensation, moves all 4 limbs Psychiatric: normal affect, A&O x 3 Skin: no rash, normal turgor Dx/Plan (1) Acute on chronic systolic ACC/AHA stage C congestive heart failure Code(s): I50.23 - ACUTE ON CHRONIC SYSTOLIC (CONGESTIVE) HEART FAILURE Status : Acute (2) Acute respiratory failure with hypoxia Code(s): J96.01 - ACUTE RESPIRATORY FAILURE WITH HYPOXIA Status: Resolved (3) Anxiety and depression Code(s): F41.9 - ANXIETY DISORDER, UNSPECIFIED; F32.9 - MAJOR DEPRESSIVE DISORDER, SINGLE EPISODE, UNSPECIFIED Status: Acute (4) Community acquired bacterial pneumonia Code(s): J15.9 - UNSPECIFIED BACTERIAL PNEUMONIA Status: Acute (5) Bipolar 1 disorder Code(s): F31.9 - BIPOLAR DISORDER, UNSPECIFIED Status: Chronic (6) Coronary artery disease Code(s): I25.10 - ATHSCL HEART DISEASE OF [place] CORONARY ARTERY W/O ANG PCTRS Status: Chronic Comment: stable (7) History of coronary artery stent placement Code(s): Z95.5 - PRESENCE OF CORONARY ANGIOPLASTY IMPLANT AND GRAFT Status: Chronic (8) Hyperlipidemia Code(s): E78.5 - HYPERLIPIDEMIA, UNSPECIFIED Status: Chronic (9) Hypertension Code(s): I10 - ESSENTIAL (PRIMARY) HYPERTENSION Status: Chronic Qualifiers: Hypertension type: essential hypertension Qualified Code(s): I10 - Essential (primary) hypertension Comment: titrate antihypertensives as needed (10) Obesity (BMI 30-39.9) Code(s): E66.9 - OBESITY, UNSPECIFIED Status: Chronic - Plan cont current plan of care, continue antibiotics, respiratory therapy * continue lasix IV * continue omnicef and azithromycin * medication reviewed as below * symptomatic treatment * stable and improving. Review of Systems - Review of Systems ENT: negative: Ear Pain, Ear Discharge, Nose Pain, Nose Discharge, Nose Congestion, Mouth Pain, Mouth Swelling, Throat Pain, Throat Swelling, Other Respiratory: negative: Cough, Dry, Shortness of Breath, Hemoptysis, SOB with Excertion, Pleuritic Pain, Sputum, Wheezing Cardiovascular: negative: chest pain, palpitations, orthopnea, paroxysmal nocturnal dyspnea, edema, light headedness, other Gastrointestinal: negative: Nausea, Vomiting, Abdominal Pain, Diarrhea, Constipation, Melena, Hematochezia, Other Genitourinary: negative: Dysuria, Frequency, Incontinence, Hematuria, Retention , Other Musculoskeletal: negative: Neck Pain, Shoulder Pain, Arm Pain, Back Pain, Hand Pain, Leg Pain, Foot Pain, Other Skin: negative: Rash, Lesions, Blade, Bruising, Other - Medications/Allergies Allergies/Adverse Reactions: Allergies Allergy/AdvReac Type Severity Reaction Status Date / Time levofloxacin [From Levaquin] Allergy Verified 07/25/16 00:43 Medications: Current Medications Acetaminophen (Tylenol) 650 mg PO Q4H PRN PRN Reason: Headache/Fever or Pain Last Admin: 06/17/17 00:41 Dose: 650 mg Acetaminophen (Tylenol) 650 mg MA Q4H PRN PRN Reason: Headache/Fever or Pain Al Hydroxide/Mg Hydroxide (Maalox) 30 ml PO Q6H PRN PRN Reason: Heartburn or Indigestion Albuterol Sulfate (Proventil Hfa) 2 puff INH Q6H PRN PRN Reason: SOB &/or Wheezing Albuterol/Ipratropium (Duoneb) 3 ml NEB [id number] [facility] Last Admin: 06/18/17 07:14 Dose: 3 ml Aspirin (Ecotrin) 81 mg PO DAILY [facility] Last Admin: 06/18/17 09:23 Dose: 81 mg Atorvastatin Calcium (Lipitor) 80 mg PO HS [facility] Last Admin: 06/17/17 22:12 Dose: 80 mg Bisacodyl (Dulcolax) 10 mg PO DAILYPRN PRN PRN Reason: Constipation Bisacodyl (Dulcolax) 10 mg MA Q24H PRN PRN Reason: Constipation Carvedilol (Coreg) 6.25 mg PO BID [facility] Last Admin: 06/18/17 09:22 Dose: 6.25 mg Cefdinir (Omnicef) 300 mg PO BID [facility] Stop: 06/18/17 21:01 Last Admin: 06/18/17 09:22 Dose: 300 mg Clopidogrel Bisulfate (Plavix) 75 mg PO DAILY [facility] Last Admin: 06/18/17 09:23 Dose: 75 mg Lidocaine HCl 20 ml/ Al Hydroxide/Mg Hydroxide 30 ml/Atropine/Hyoscyam/Phenobarb /Scopol 32.4 mg 0 ml SSW Q8H PRN PRN Reason: . Last Admin: 06/16/17 20:23 Dose: 1 dose Enoxaparin Sodium (Lovenox) 40 mg SC 0900 [facility] Last Admin: 06/18/17 09:23 Dose: 40 mg Furosemide (Lasix) 40 mg PO DAILY[facility] Last Admin: 06/18/17 06:50 Dose: Not Given Furosemide (Lasix) 40 mg SLOW IVP DAILY [facility] Last Admin: 06/18/17 09:23 Dose: 40 mg Guaifenesin (Robitussin Sf) 100 mg PO Q4H PRN PRN Reason: Cough Last Admin: 06/17/17 22:11 Dose: 100 mg Hydralazine HCl (Apresoline) 10 mg SLOW IVP Q6H PRN PRN Reason: SBP Greater Than 170 Lisinopril (Zestril) 5 mg PO DAILY [facility] Last Admin: 06/18/17 09:23 Dose: 5 mg Methylprednisolone Sodium Succinate (Solu-Medrol) 20 mg IVP Q8HR [facility] Last Admin: 06/18/17 06:48 Dose: 20 mg Nitroglycerin (Nitrostat) 0.4 mg SL Q5MIN PRN PRN Reason: Chest Pain Ondansetron HCl (Zofran) 4 mg SLOW IVP Q6H PRN PRN Reason: Nausea/Vomiting Last Admin: 06/15/17 15:04 Dose: 4 mg Pantoprazole Sodium (Protonix) 40 mg PO DAILY [facility] Last Admin: 06/18/17 09:23 Dose: 40 mg Sodium Chloride (Flush - Normal Saline) 10 ml IVF Q12HR [facility] Last Admin: 06/18/17 09:36 Dose: 10 ml Sodium Chloride (Flush - Normal Saline) 10 ml IVF PRN PRN PRN Reason: Saline Flush Spironolactone (Aldactone) 25 mg PO QA-[facility] Last Admin: 06/18/17 09:22 Dose: 25 mg
[2017-06-18] MEDS ORDERED: Furosemide 40 MG/4 ML VIAL SLOW IVP SCH ×2 (11:30→14:00)
[2017-06-18] MEDS ORDERED: Metolazone 5 MG TAB PO SCH (11:30)
[2017-06-18 12:28] VITALS: BP 118/73; TEMP 97.9
--- NOTE | 2017-06-19 06:53 | DIS ---
PRIMARY CARE PHYSICIAN: Dr. González Vegas DATE OF ADMISSION: 06/14/2017 DATE OF DISCHARGE: 06/18/2017 DISCHARGE DISPOSITION: Home against medical advice. PRIMARY DISCHARGE DIAGNOSES: 1. Community-acquired bacterial pneumonia. 2. Acute on chronic systolic congestive heart failure. 3. Acute respiratory failure with hypoxia, improved. SECONDARY DISCHARGE DIAGNOSES: Chronic systolic heart failure, obesity with BMI 39, hypertension, dy slipidemia, coronary artery disease, bipolar disorder, anxiety and depression. PRIMARY PROCEDURE/OPERATION: None. RADIOLOGICAL INVESTIGATION: CT angio chest. Chest x-ray, abdomen x-ray and repeat chest x-ray. SIGNIFICANT LABS: Hemoglobin 11.9, INR 1.1, creatinine 0.81. BNP 341. Urinalysis unremarkable othe r than high specific gravity. Blood culture negative. Urine culture grew Streptococcus. DISCHARGE MEDICATIONS: Aspirin 81 mg p.o. daily, Lipitor 80 mg p.o. at bedtime, Coreg 6.25 mg p.o. b .i.d., Omnicef 300 mg p.o. b.i.d., Plavix 75 mg p.o. daily, Lasix 40 mg p.o. b.i.d., lisinopril 5 mg p.o. daily, nitroglycerin 0.4 mg sublingual p.r.n., Protonix 40 mg p.o. daily, Lyrica 150 mg p.o. p.r .n., Aldactone 25 mg p.o. daily, Ventolin inhaler 2 puffs q.6 hourly p.r.n. CONTRAINDICATIONS: None. CODE STATUS: FULL CODE. INPATIENT CONSULTANTS: Dr. Condon and Dr. Campos were following while in hospital. Cardiology was consulted on the day of discharge. TEST RESULTS PENDING ON DISCHARGE: None. ALLERGIES: LEVOFLOXACIN. DISCHARGE PLAN: Post hospital, the patient is instructed to follow up with primary care physician an d [facility]. HOSPITAL COURSE: A 42-year-old female with the above-mentioned medical problems who was admitted by Dr. Jack on 06/14/2017. Please see his H&P for further details. The patient presented to emergency room with increasing shortness of breath, cough, and low grade fever. She was diagnosed with pneumo ange based on chest x-ray as well as CT angio. CT angio was negative for pulmonary embolism. She als o had elevated BNP and she was also suffering from increasing level of congestive heart failure exace rbation. During this admission, automotive glass technician saw this patient and they recommended to continue anti biotic therapy as well as diuretic therapy. While in the hospital she was treated with antibiotic th erapy with Rocephin and azithromycin. On discharge, we changed to Omnicef. The patient was also giv en IV Lasix and on discharge the patient continued all her previous medications. The patient's pneumonia is improving and she was on room air. Initially, she had hypoxic respiratory failure, but by the end of treatment her oxygen requirement disappeared. She was not requiring any home oxygen upon discharge. Her pneumonia is improved, but her CHF is still not improved significantly enough to discharge her ho me, but she decided to leave against medical advice and based on that, we let her go home against med ical advice despite explanation to stay in hospital for a couple of more days for appropriate treatme nt for congestive heart failure. While in hospital, she had nonsustained ventricular tachycardia. Cardiology was consulted. This pat ient will follow up with her own non destructive testing inspector, Dr. Gibson, as an outpatient basis. Her electrolytes ar e normal. The patient is seen and examined at bedside today on the day of discharge. Please see my progress no te from that day.
[2017-06-19] MEDS ORDERED: Metolazone 5 MG TAB PO SCH (08:30)
--- NOTE | 2017-06-25 16:04 | EKG ---
Test Reason : Blood Pressure : / mmHG Vent. Rate : 107 BPM Atrial Rate : 107 BPM P-R Int : 132 ms QRS Dur : 074 ms QT Int : 336 ms P-R-T Axes : 062 069 070 degrees QTc Int : 448 ms Sinus tachycardia Biatrial enlargement No STEMI Abnormal ECG Confirmed by FREDA CUEVA M.D. ([id number]), editor index DAISHA JUSTICE ([id number] on 06/25/2017 4:04:18 PM Referred By: Confirmed By:FREDA CUEVA M.D.
== END 2017-06-18 16:15 | disposition left against medical advice (07) | DRG 291 ==
LOC: ERS 01:11 → ERHOLD 05:24 → 2NO 11:25
PROVIDERS: ADMIT Family Medicine; ATTEND Family Medicine
DX: I11.0 Hypertensive heart disease with heart failure (principal); J18.9 Pneumonia, unspecified organism; J96.01 Acute respiratory failure with hypoxia; I47.2 Ventricular tachycardia; R04.2 Hemoptysis; I50.23 Acute on chronic systolic (congestive) heart failure; I25.10 Atherosclerotic heart disease of native coronary artery without angina pectoris; E78.5 Hyperlipidemia, unspecified; I25.2 Old myocardial infarction; F31.9 Bipolar disorder, unspecified; R59.0 Localized enlarged lymph nodes; Z87.891 Personal history of nicotine dependence; E66.9 Obesity, unspecified; Z68.39 Body mass index [BMI] 39.0-39.9, adult
CPT/HCPCS: 36415; 36416; 71045; 71046; 71275; 74019; 80048; 80053; 81003; 81015; 82164; 83605; 83735; 83880; 84100; 84484; 84703; 85025; 85379; 85610; 85730; 87040; 87077; 87086; 93005; 93798; 94640; 96365; 96368; A4216; J0456; J0696; J1650; J1940; J2405; J2920; J7050; J7620; J8540

== ENCOUNTER 2017-07-09 11:21 | Outpatient (CLI) | payer OTHER | END 2017-07-09 11:22 | disposition home or self-care (01) | LOC: BICRAD 11:21 | PROVIDERS: ATTEND Internal Medicine | DX: Z02.71 Encounter for disability determination (principal) | CPT/HCPCS: 71046 ==

== ENCOUNTER 2018-07-23 15:18 | Inpatient (IN) | payer MEDICAID, OTHER, SELFPAY ==
[~2018-07-23 15:18] MED LIST: Iopamidol 370 76% 100 ML VIAL ONE; Iopamidol 370 76% 50 ML VIAL FS ONE
[2018-07-23] MEDS ORDERED: Ondansetron PF 4 MG/2 ML Vial ONE (15:23)
[2018-07-23 15:35] LABS: #Basophils 0.1 thou/uL (0.0-0.2); #Eosinphils 0.3 thou/uL (0.0-0.7); #Lymphocytes 3.1 thou/uL (1.20-3.40); #Monocytes 0.6 thou/uL (0.11-0.59); #Neutrophils 6.7 thou/uL (1.40-6.50); %Basophils 0.5 % (0.0-1.0); %Eosinophils 2.8 % (0.0-10.0); %Lymphocytes 28.7 % (21.0-51.0); %Monocytes 5.8 % (0.0-10.0); %Neutrophils 62.3 % (42.0-75.0); Hemoglobin 12.6 g/dL (12.0-16.0); Mean Corpuscular HGB CONC 33.2 g/dL (32.0-36.0); Mean Corpuscular Hemoglobin 28.8 pg (27.0-31.0); Mean Corpuscular Volume 86.8 fL (78.0-98.0); Mean Platelet Volume 7.5 fL (7.4-10.4); Platelet Count 228 thou/uL (130-400); RBC Distribution Width 13.3 % (11.5-14.5); Red Blood Cell (RBC) Count 4.39 mill/uL (4.20-5.40); White Blood Cell (WBC) Count 10.8 thou/uL (4.8-10.8)
[2018-07-23 15:40] LABS: PTT 23.6 SEC (22.9-36.1)
[2018-07-23] MEDS ORDERED: Heparin 10,000 UNITS/1 ML VIAL ONE (15:41)
[2018-07-23] MEDS ORDERED: Midazolam HCl 2 mg/2 ml Vial ONE (15:41)
[2018-07-23] MEDS ORDERED: Fentanyl 100 MCG/2 ML VIAL ONE (15:42)
[2018-07-23 15:49] LABS: ALT (SGPT) 16 U/L (8-55); AST (SGOT) 13 U/L (5-34); Albumin 3.5 g/dL (3.5-5.0); Alkaline Phosphatase 70 U/L (40-150); Anion Gap 15 mmol/L (10-20); BUN (Urea Nitrogen) 21 mg/dL (7.0-18.7); Bilirubin, Total 0.5 mg/dL (0.2-1.2); CK (CPK) 90 U/L (29-168); Calc. Creatinine Clearance 0 mL/min (70-130); Calcium 8.6 mg/dL (7.8-10.44); Carbon Dioxide 21 mmol/L (22-29); Chloride 106 mmol/L (98-107); Estimated GFR-MDRD 68; Globulin 3.1 g/dL (2.4-3.5); Glucose 144 mg/dL (70-105); Lipase 12 U/L (8-78); Potassium 3.5 mmol/L (3.5-5.1); Protein, Total 6.6 g/dL (6.0-8.3); Sodium 138 mmol/L (136-145)
[2018-07-23] MEDS ORDERED: Nitroglycerin 100MG/250ML BOT 250 ML ONE (15:49)
[2018-07-23] MEDS ORDERED: Verapamil 5 MG/2 ML VIAL ONE (15:49)
[2018-07-23] MEDS ORDERED: Adenosine 6 MG/2 ML VIAL ONE (15:49)
[2018-07-23] MEDS ORDERED: Atropine Sulfate 1 mg/10 ml Syringe ONE (15:58)
[2018-07-23] MEDS ORDERED: Aggrastat 12.5 MG/250 ML 250 ML ONE (16:26)
[2018-07-23] MEDS ORDERED: Nitroglycerin 50 MG/250 ML BOT 250 ML ONE (16:26)
[2018-07-23] MEDS ORDERED: Sodium Chloride 0.9% 1,000 ML IV SCH (16:30)
[2018-07-23] MEDS ORDERED: Nitroglycerin 50 MG/250 ML BOT 250 ML IVPB SCH (20:00)
[2018-07-23] MEDS ORDERED: Aggrastat 12.5 MG/250 ML 250 ML IVPB SCH (20:00)
[2018-07-23] MEDS ORDERED: HYDROcodone/Acetaminophen 5/325 mg Tablet PO PRN (21:37)
[2018-07-23] MEDS: HYDROcodone/Acetaminophen 5/325 mg Tablet PO PRN (22:08)
[2018-07-23 23:05] VITALS: BMI 44.1
--- NOTE | 2018-07-23 23:34 | CON ---
DATE OF CONSULTATION: 07/23/2018 HISTORY OF PRESENT ILLNESS: This is a very pleasant 43-year-old female with a history of cardiomyopathy, hypertension, multiple coronary stent placements. In the past, she had multiple stents placed in all 3 major coronary vessels initially in the [place] area and then subsequently here by Dr. Gibson and then more recently 2 years ago to the right and circumflex by Dr. Burgos. She was walking in her house from outside when she experienced sudden onset of chest discomfort prompting her visit to the emergency room today. Over the past 2 years, she has been followed at the [facility], although has not seen a beef boner. She is followed at [facility]. She is treated for cardiomyopathy, hypertension, dyslipidemia, and congestive failure at [facility] and she is desiring a different physician due to her multiple medical problems. She was found today to have a subtotal occlusion just proximal to her right coronary artery stent and this was treated with stenting. In addition, she was found to have a stenosis at the edge of her LAD stent as well as her circumflex stent that was severe. PAST SURGICAL HISTORY: Includes spine surgery, herniorrhaphy, . PAST MEDICAL HISTORY: As noted, hypertension, dyslipidemia, coronary artery disease, cardiomyopathy, and bipolar disorder. MEDICATIONS: Include 1. Spironolactone. 2. Lisinopril. 3. Lasix. 4. Plavix. 5. Coreg. 6. Atorvastatin. 7. Aspirin. 8. Lyrica. 9. Ventolin inhaler. ALLERGIES: NONE KNOWN. PHYSICAL EXAMINATION: GENERAL: Alert, cooperative lady, in no distress with a weight of 110 kilos, a height of 5 feet 4 inches giving her a BMI of greater than 40. She is lying comfortably in the PACU unit. NECK: No carotid bruits. LUNGS: Clear to auscultation. CARDIAC: Distant heart sounds. No murmur. Regular rhythm, regular rate. ABDOMEN: Obese, nontender. EXTREMITIES: She has a palpable pedal pulse in both feet. She is right arm dominant with an abnormal plethysmographic waveform on her left index finger with radial compression. At this time, need to reassess her LV function with cardiac echo. Concerning is the fact that her LVEDP today was 39 on what appears to be good treatment for her congestive heart failure. If her EF is 20% or less, I think consideration will need to be given to stenting her coronaries again. If her ejection fraction is better, then consideration could be given to coronary bypass grafting, but given her size, I do not think bilateral SHAUN grafts are reasonable options and left radial is also not an option, so we would be talking about mammary and then 2 vein grafts in a 43-year-old female. We will assess again after a cardiac echo tomorrow. Job ID: [id number]
[2018-07-24] MEDS ORDERED: Enoxaparin Sodium 120 MG/0.8 ML SYRINGE SC SCH (01:30)
[2018-07-24 04:50] LABS: #Basophils 0.1 thou/uL (0.0-0.2); #Eosinphils 0.2 thou/uL (0.0-0.7); #Lymphocytes 2.2 thou/uL (1.20-3.40); #Monocytes 0.6 thou/uL (0.11-0.59); #Neutrophils 8.8 thou/uL (1.40-6.50); %Basophils 0.4 % (0.0-1.0); %Eosinophils 1.7 % (0.0-10.0); %Lymphocytes 18.2 % (21.0-51.0); %Monocytes 5.2 % (0.0-10.0); %Neutrophils 74.5 % (42.0-75.0); Hemoglobin 11.7 g/dL (12.0-16.0); Mean Corpuscular HGB CONC 32.9 g/dL (32.0-36.0); Mean Corpuscular Hemoglobin 28.7 pg (27.0-31.0); Mean Corpuscular Volume 87.4 fL (78.0-98.0); Platelet Count 205 thou/uL (130-400); RBC Distribution Width 13.5 % (11.5-14.5); Red Blood Cell (RBC) Count 4.06 mill/uL (4.20-5.40); White Blood Cell (WBC) Count 11.9 thou/uL (4.8-10.8)
[2018-07-24 05:15] LABS: ALT (SGPT) 18 U/L (8-55); AST (SGOT) 86 U/L (5-34); Albumin 3.3 g/dL (3.5-5.0); Alkaline Phosphatase 68 U/L (40-150); Anion Gap 12 mmol/L (10-20); BUN (Urea Nitrogen) 15 mg/dL (7.0-18.7); Bilirubin, Total 0.3 mg/dL (0.2-1.2); CK (CPK) 848 U/L (29-168); Calc. Creatinine Clearance 142 mL/min (70-130); Calcium 8.7 mg/dL (7.8-10.44); Carbon Dioxide 25 mmol/L (22-29); Chloride 105 mmol/L (98-107); Estimated GFR-MDRD 77; Globulin 2.9 g/dL (2.4-3.5); Glucose 121 mg/dL (70-105); Potassium 3.7 mmol/L (3.5-5.1); Protein, Total 6.2 g/dL (6.0-8.3); Sodium 138 mmol/L (136-145)
[2018-07-24] MEDS: HYDROcodone/Acetaminophen 5/325 mg Tablet PO PRN ×2 (07:34→20:31)
[2018-07-24] MEDS: Enoxaparin Sodium 120 MG/0.8 ML SYRINGE SC SCH ×2 (09:45→20:32)
--- NOTE | 2018-07-24 09:52 | PDOC.PULCN ---
Pulmonology Consult: HPI - Date of Consult Date: 07/24/18 Time: 09:51 - Consult Details Reason for Consult: STEMI s/p stent in RCA yesterday, currently on a nitro drip, pending CABG - History of Present Illness HPI: MIRTHA STEPHENS is a 43 year-old F with known pmhx of CAD s/p multiple stents placed, CHF, HTN who presented yesterday with chest pain on exertion, admitted for a STEMI and is now s/p PCI with occlusion and new stent placed proximal to the previously stented RCA. Pt denies chest pain this morning. Is tearful at bedside. Pulmonology Consult: ROS - Review of Systems Constitutional: negative: fever, chills Cardiovascular: edema (lower extremities). negative: chest pain (none currently ), palpitations Respiratory: no reported symptoms. negative: congestion, cough, chest tightness Pulmonology Consult: PMH Source: patient Past Medical History: PMHx: 1. CAD s/p multiple stents placed 2. CHF 3. HTN PSH: 1. Spine surgery 2. CS - Family History Family history: reviewed and not pertinent - Social History Smoking Status: Never smoker Alcohol Use: none Drug Use History: none Pulmonology Consult: Meds - Medications MAR Reviewed: Yes Medications: Current Medications Hydrocodone Bitart/Acetaminophen ([place] 5/325) 1 tab PO Q6H PRN PRN Reason: Mild-Moderate Pain (1-5) Hydrocodone Bitart/Acetaminophen ([place] 5/325) 2 tab PO Q6H PRN PRN Reason: Moderate to Severe Pain (6-10) Last Admin: 07/24/18 07:34 Dose: 2 tab Enoxaparin Sodium (Lovenox) 120 mg SC 0900,2100 GEOFF Last Admin: 07/24/18 09:45 Dose: 120 mg Tirofiban/Sodium Chloride (Aggrastat 12.5 Mg/250 Ml) 250 mls @ 0 mls/hr IVPB INF GEOFF; Protocol Stop: 07/24/18 10:30 Last Admin: 07/24/18 02:14 Dose: 250 mls Nitroglycerin/Dextrose (Nitroglycerin 50 Mg/250 Ml Bot) 250 mls @ 0 mls/hr IVPB INF GEOFF; Protocol - Allergies Allergies/Adverse Reactions: Allergies Allergy/AdvReac Type Severity Reaction Status Date / Time levofloxacin [[facility]] Allergy Verified 07/25/16 00:43 Pulmonology Consult: PE - Physical Exam Constitutional: NAD HEENT: PERRLA, moist MMs Cardiovascular: RRR, no significant murmur Respiratory: clear to auscultation anteriorly Gastrointestinal: soft, non-tender Musculoskeletal: pulses present. negative: no edema (edema 2+ pitting to mid lua) Neurological: non-focal, normal sensation Psychiatric: normal affect, A&O x 3 Skin: no rash, cap refill <2 seconds Pulmonology Consult: Results - Labs Result Diagrams: 07/24/18 04:01 07/24/18 04:01 - EKG Data EKG Interpreted by Myself (STEMI leads III, aVF) Pulmonology Consult: A/P - Problem (1) STEMI (ST elevation myocardial infarction) Current Visit: Yes Status: Acute Qualifiers: Involved coronary artery: right coronary artery Qualified Code(s): I21.11 - ST elevation (STEMI) myocardial infarction involving right coronary artery (2) Acute on chronic diastolic CHF (congestive heart failure) Current Visit: Yes Code(s): I50.33 - ACUTE ON CHRONIC DIASTOLIC (CONGESTIVE) HEART FAILURE Status: Chronic (3) Coronary artery disease Current Visit: Yes Code(s): I25.10 - ATHSCL HEART DISEASE OF [place] CORONARY ARTERY W/O ANG PCTRS Status: Acute (4) History of coronary artery stent placement Current Visit: No Code(s): Z95.5 - PRESENCE OF CORONARY ANGIOPLASTY IMPLANT AND GRAFT Status: Chronic (5) Hyperlipidemia Current Visit: No Code(s): E78.5 - HYPERLIPIDEMIA, UNSPECIFIED Status: Chronic (6) Hypertension Current Visit: No Code(s): I10 - ESSENTIAL (PRIMARY) HYPERTENSION Status: Chronic Qualifiers: Hypertension type: essential hypertension Qualified Code(s): I10 - Essential (primary) hypertension (7) FILIBERTO (obstructive sleep apnea) Current Visit: Yes Code(s): G47.33 - OBSTRUCTIVE SLEEP APNEA (ADULT) ( PEDIATRIC) Status: Suspected (8) Morbid obesity Current Visit: Yes Code(s): E66.01 - MORBID (SEVERE) OBESITY DUE TO EXCESS CALORIES Status: Acute - Time Time: 50% of the time was spent in coordination of care (as documented) at patient's floor/unit and/or counseling patient. Time with Patient: greater than 70 minutes - Plan Plan: 43 yo f with pmhx of CAD s/p multiple stents placed admitted for STEMI s/p PCI with new stent placed in RCA. 1.)STEMI-pt s/p PCI with new found occlusion and stent placement of RCA proximal to prior stent placed. Pt to possibly undergo CABG per CV surgery/ Cards recommendations. Pending echo to evaluate for current LV function. Pt currently on a nitro drip started after PCI, bp's controlled, asymptomatic this morning. 2.)Acute on chronic CHF, systolic and diastolic-echo ordered to evaluate LV function. 10/2016 echo showed EF 25-30% and 3/3 diastolic dysfunction. Pt volume up, with 2+ pitting edema. Pt may need lasix for better diuresis. Ordered 40mg IV x 1, and scheduled 40mg IV daily, will re-evaluate each pm for additional dose based on diuresis. Home meds held currently. 3.)HTN-initially hypertensive, pt currently on nitro drip, bp's controlled and without chest pain this morning. 4.)Suspected FILIBERTO-Discussed with pt outpatient sleep study. Currently, from a respiratory standpoint, pt is saturating well on room air. Pulm will follow while in ICU. 5.)HLD-home meds held 6.)Morbid obesity-aware, counseled on diet, discussed pt to have frequent follow -up with PCP Jocelyne Vega MD, PGY-2 ICU rotation This pt was seen and evaluated with Dr. Condon at bedside who agrees with the above assessment and plan. Addendum - Attending - Attending Attestation Date/Time: 07/24/181499 I personally evaluated the patient and discussed the management with Dr. Vega. I agree with the History, Examination, Assessment and Plan documented above with any addition or exceptions noted below. 70 minutes have been devoted to this patient in various activities. I personally reviewed all imaging studies and laboratory data noted within this document. For fifty percent of this time, I was interacting with the patient at the bedside or coordinating care with the care team. For the remainder of the time I was immediately available to the patient in the hospital unit.
[2018-07-24] MEDS ORDERED: Furosemide 40 MG/4 ML VIAL SLOW IVP SCH (10:45)
[2018-07-24] MEDS ORDERED: Potassium Chloride 20 MEQ TAB PO SCH (13:15)
--- NOTE | 2018-07-24 19:16 | PDOC.CTH ---
Cardiology Progress Note - Subjective Doing well this am. Only complaining of DELONG. - Objective Vital Signs Temp Pulse Pulse BP BP Pulse Ox Pulse Ox 07/24/18 15:00 98.5 F 07/24/18 11:00 98.3 F 07/24/18 09:53 88 91 139/98 H 148/97 H 99 07/24/18 08:00 97 Pulse Ox 07/24/18 15:00 07/24/18 11:00 07/24/18 09:53 98 07/24/18 08:00 Weight 256 lb 13.416 oz 07/23/18 07/24/18 07/25/18 06:59 06:59 06:59 Intake Total 2143.6 1151 Output Total 2500 Balance 2143.6 -1349 - Physical Examination General/Neuro: alert & oriented x3, NAD Neck: no JVD present Lungs: CTA, unlabored respirations Heart: PMI normal, RRR Abdomen: NT/ND, soft Extremities: + femoral B - Telemetry Telemetry Rhythm: sr - Labs Result Diagrams: 07/24/18 04:01 07/24/18 04:01 Troponin/CKMB Troponin I Less than 0.010 ng/mL (< 0.028) 07/23/18 15:21 - Assessment/Plan AMI HTN Obesity FILIBERTO CAD Difficult situation EF on echo 25-30% with severe central MR Pt with 10-12 previous stents and appears to have progression of disease in the LAD and Cx She woudl otherwise be a candidate for stage PCI but concern over recurrent restenosis as previous Recommend CABG and MV ring if felt to be a reasonable candidate Cotyumi lvoenox D/C aggrestat on ASA Await recs from Dr. Almazan
[2018-07-24] MEDS ORDERED: Aspirin 325 MG TAB PO SCH ×2 (19:30→20:00)
[2018-07-24] MEDS ORDERED: Lisinopril 10 MG TAB PO SCH (20:00)
[2018-07-24] MEDS: Atorvastatin Calcium 40 MG TAB PO SCH (20:30)
[2018-07-25 05:33] LABS: Troponin I 6.694 ng/mL (< 0.028)
--- NOTE | 2018-07-25 08:04 | RAD ---
Portable chest: HISTORY: Cough COMPARISON: 06/14/2017 FINDINGS:Borderline cardiomegaly. Mild vascular engorgement. Question hazy infiltrate in the right up per lung. IMPRESSION:Question right upper lung infiltrate. Further evaluation with upright PA and lateral views would be helpful.
--- NOTE | 2018-07-25 08:13 | PRG ---
DATE OF SERVICE: 07/25/2018 SUBJECTIVE: Ms. Tolentino was currently hospitalized after sustaining a myocardial infarction. This morning, she is complaining of shortness of breath and productive cough. She wants to have a chest x-ray as she has not had one since admission. Of note, she was in the hospital about a month and a half ago with right upper lobe pneumonia. OBJECTIVE: VITAL SIGNS: Her temperature is 99, pulse 95, blood pressure 104/58. Last O2 saturation recorded was 100% yesterday afternoon. HEENT: Pupils are reactive. Sclerae are anicteric. Oropharynx is clear. NECK: No JVD. LUNGS: Clear without wheezing or rhonchi. CARDIAC: S1 and S2, regular without audible murmur. ABDOMEN: Soft, obese, and nontender. EXTREMITIES: No clubbing, cyanosis, or edema. LABORATORY DATA: Last white blood cell count is 11.9, hematocrit 35.5, and platelet count 205. ASSESSMENT: 1. Myocardial infarction. 2. Recent pneumonia. 3. Current bronchitic symptoms. PLAN: 1. Check chest x-ray. 2. Start nebulization treatments. 3. Consider starting antibiotics if x-ray suggestive of pneumonia. 4. Transfer to the floor, when okay with cardiology team. Job ID: [id number]
[2018-07-25] MEDS: Aspirin 325 MG TAB PO SCH (08:41)
[2018-07-25] MEDS: Carvedilol 3.125 MG TAB PO SCH ×2 (08:42→17:53)
[2018-07-25] MEDS: Lisinopril 10 MG TAB PO SCH (08:42)
[2018-07-25] MEDS: Enoxaparin Sodium 120 MG/0.8 ML SYRINGE SC SCH (09:08)
[2018-07-25] MEDS: Furosemide 40 MG/4 ML VIAL SLOW IVP SCH (09:11)
[2018-07-25] MEDS: Ziprasidone 20 MG CAP PO SCH (10:45)
[2018-07-25] MEDS ORDERED: Clopidogrel Bisulfate 300 MG TAB PO SCH (17:00)
--- NOTE | 2018-07-25 17:27 | PDOC.CTH ---
Cardiology Progress Note - Subjective Doing well. No complaints. - Objective Vital Signs Temp Pulse Pulse Pulse Resp BP BP 07/25/18 16:00 98.2 F 07/25/18 14:36 74 19 07/25/18 11:00 98.2 F 07/25/18 10:50 90 91 135/82 07/25/18 08:42 129/88 07/25/18 08:00 98.8 F BP Pulse Ox 07/25/18 16:00 07/25/18 14:36 07/25/18 11:00 07/25/18 10:50 105/78 07/25/18 08:42 07/25/18 08:00 99 Weight 256 lb 13.416 oz 07/24/18 07/25/18 07/26/18 06:59 06:59 06:59 Intake Total 2143.6 1371 700 Output Total 2900 2200 Balance 2143.6 -1529 -1500 - Physical Examination General/Neuro: alert & oriented x3, NAD Neck: carotid US brisk, no JVD present Lungs: CTA, unlabored respirations Heart: PMI normal, RRR Abdomen: NT/ND, soft Extremities: + femoral B - Labs Result Diagrams: 07/24/18 04:01 07/24/18 04:01 Troponin/CKMB Troponin I 6.694 ng/mL (< 0.028) H* 07/25/18 04:03 - Assessment/Plan AMI HTN OSDA CAD Pt with EF 25-30% on recent echo Pt felt to be high risk for surgery and recommend pt be transferred to a high level of care SW Dr. Palacios. Recommend waiting 2 weeks after WI DC lovenox Add plavix Zoll vest HJome in am after LV
[2018-07-25] MEDS: HYDROcodone/Acetaminophen 5/325 mg Tablet PO PRN (20:25)
[2018-07-25] MEDS: Atorvastatin Calcium 40 MG TAB PO SCH (20:26)
[2018-07-26] MEDS: Furosemide 40 MG/4 ML VIAL SLOW IVP SCH (08:55)
[2018-07-26] MEDS: Ziprasidone 20 MG CAP PO SCH ×2 (08:55→08:59)
[2018-07-26] MEDS: Aspirin 325 MG TAB PO SCH (08:55)
[2018-07-26] MEDS: Carvedilol 3.125 MG TAB PO SCH ×2 (08:55→17:46)
[2018-07-26] MEDS: Lisinopril 10 MG TAB PO SCH (08:55)
[2018-07-26] MEDS ORDERED: Clopidogrel Bisulfate 75 MG TAB PO SCH (09:00)
--- NOTE | 2018-07-26 09:22 | RAD ---
CHEST TWO VIEWS: HISTORY: Questionable right upper lobe pneumonia. Followup. COMPARISON: 07/25/2018 FINDINGS: Minimal increased markings in the perihilar regions noted bilaterally. No evidence for confluent lob ar pneumonia. No pleural effusion. Mild cardiomegaly. IMPRESSION: Stable mild cardiomegaly and increased bronchovascular markings bilaterally, but no evidence for conf luent pneumonia. POS: [facility]
--- NOTE | 2018-07-26 10:36 | PRG ---
DATE OF SERVICE: 07/26/2018 SUBJECTIVE: She is lying in bed, says she feels okay, had no acute complaints. OBJECTIVE: VITAL SIGNS: Temperature 99.2, pulse 91, respirations 20, OS 94%, blood pressure 122/91. HEENT: Unremarkable. NECK: No JVD. CHEST: Fairly clear. CARDIAC: S1 and S2. Regular. ABDOMEN: Soft. EXTREMITIES: No edema. IMAGING STUDIES: Chest x-ray shows no mass, effusion, or infiltrate. LABORATORY DATA: No new labs were obtained today. ASSESSMENT: 1. Status post myocardial infarction. 2. Recent pneumonia. 3. Bronchitic symptoms. PLAN: Current issues are probably cardiac in nature. I do not see any acute respiratory issues. She apparently is going home today with a vest in place. Pulmonary will sign off. Please re-call if further assistance needed. Job ID: [id number]
[2018-07-26] MEDS ORDERED: Nitroglycerin 0.4 MG TAB (25 Tab Bottle) SL PRN (16:48)
[2018-07-26 16:54] VITALS: BP 120/93; TEMP 98.2
--- NOTE | 2018-07-26 17:39 | DIS ---
DATE OF ADMISSION: 07/23/2018 DATE OF DISCHARGE: 07/26/2018 DISCHARGE DIAGNOSIS: Acute myocardial infarction. CONSULTATIONS: CV Surgery. HOSPITAL COURSE: Ms. Tolentino is a very pleasant 43-year-old woman with previous history of underlying coronary artery disease. She presented with acute myocardial infarction. She had thrombus present in the right coronary artery. She also has severe stenoses in circumflex artery and LAD. I discussed case with Dr. Aayush Almazan and decided to proceed with stent implantation in the right coronary artery. This was successful. Followup echo suggested an LVEF of 25% to 30%. She had a markedly elevated LVEDP. Discussion on proceeding with bypass surgery was discussed with Dr. Aayush Almazan. After reviewing the echo with LVEF of 25% to 30% and severe mitral regurgitation and elevated LVEDP, she is felt to be too high risk. It was decided to discuss with someone at a higher level of care. I have discussed the case with Dr. Palacios at [facility]. After her discussion with CV Surgery, [facility] decided to proceed with conservative therapy over the next 2 to 3 weeks. I would like to wait at least 2 weeks prior to surgical intervention after recent TN. The patient was stable during hospitalization. Given low LVEF, it was recommended that she will proceed with LifeVest. DISCHARGE MEDICATIONS: 1. Aspirin 81 q.a.m. 2. Plavix 75 daily. 3. Atorvastatin 80 daily. 4. Carvedilol 6.25 b.i.d. 5. Lasix 40 daily. 6. Lisinopril 5 daily. 7. Trazodone 100 mg at bedtime. 8. Geodon daily. 9. Isosorbide 30 daily. 10. Nitroglycerin sublingual. Follow up with Dr. Palacios in 2 to 3 weeks. Job ID: [id number]
[2018-07-27] MEDS ORDERED: Aspirin Chewable 81 MG TAB PO SCH (08:00)
[2018-07-27] MEDS ORDERED: Furosemide 40 MG TAB PO SCH (09:00)
--- NOTE | 2018-07-29 17:32 | EKG ---
Test Reason : Blood Pressure : / mmHG Vent. Rate : 086 BPM Atrial Rate : 086 BPM P-R Int : 130 ms QRS Dur : 080 ms QT Int : 386 ms P-R-T Axes : 046 071 -12 degrees QTc Int : 461 ms Normal sinus rhythm Nonspecific T wave abnormality Prolonged QT Abnormal ECG Confirmed by FUAD GREEN ([id number]) on 07/29/2018 5:32:41 PM Referred By: DEMI Confirmed By:FUAD GREEN
== END 2018-07-26 18:00 | disposition home or self-care (01) | DRG 246 ==
LOC: ERS 15:18 → CCL 15:29 → CCU 18:21 → 2NO 18:30
PROVIDERS: ADMIT Internal Medicine Cardiovascular Disease; ATTEND Internal Medicine Cardiovascular Disease
PROC: 4A023N7 Measurement of Cardiac Sampling and Pressure, Left Heart, Percutaneous Approach (ICD-10-PCS; principal; 2018-07-23)
PROC: 027034Z Dilation of Coronary Artery, One Artery with Drug-eluting Intraluminal Device, Percutaneous Approach (ICD-10-PCS; 2018-07-23)
PROC: 027034Z Dilation of Coronary Artery, One Artery with Drug-eluting Intraluminal Device, Percutaneous Approach (ICD-10-PCS; 2018-07-23)
PROC: 02C03ZZ Extirpation of Matter from Coronary Artery, One Artery, Percutaneous Approach (ICD-10-PCS; 2018-07-23)
PROC: B2111ZZ Fluoroscopy of Multiple Coronary Arteries using Low Osmolar Contrast (ICD-10-PCS; 2018-07-23)
DX: I21.19 ST elevation (STEMI) myocardial infarction involving other coronary artery of inferior wall (principal); I50.33 Acute on chronic diastolic (congestive) heart failure; I42.9 Cardiomyopathy, unspecified; Z68.41 Body mass index [BMI] 40.0-44.9, adult; E66.01 Morbid (severe) obesity due to excess calories; G47.33 Obstructive sleep apnea (adult) (pediatric); I34.0 Nonrheumatic mitral (valve) insufficiency; J40 Bronchitis, not specified as acute or chronic; I25.10 Atherosclerotic heart disease of native coronary artery without angina pectoris; I11.0 Hypertensive heart disease with heart failure; E78.5 Hyperlipidemia, unspecified; F31.9 Bipolar disorder, unspecified; Z79.899 Other long term (current) drug therapy; Z79.02 Long term (current) use of antithrombotics/antiplatelets; Z79.82 Long term (current) use of aspirin; Z95.5 Presence of coronary angioplasty implant and graft; Z88.1 Allergy status to other antibiotic agents; Z87.01 Personal history of pneumonia (recurrent)
CPT/HCPCS: 36415; 71045; 71046; 76942; 80053; 82550; 83690; 83880; 84484; 85025; 85347; 85610; 85730; 92941; 92977; 93005; 93010; 93306; 93458; 93798; 94640; 94760; 96374; 99152; 99153; C1725; C1757; C1769; C1874; C1887; C9606; J0153; J0461; J1644; J1650; J1940; J2250; J2405; J3010; J3246; J7620; Q9967

== ENCOUNTER 2018-11-13 10:02 | Outpatient (CLI) | payer OTHER ==
--- NOTE | 2018-11-13 10:51 | MMO ---
Left Breast MAMMO Unilat Diag DDI LT+ZACH. CLINICAL HISTORY: Patient is 43 years old and is seen for diagnostic exam. The patient has no family history of breast cancer. The patient has no personal history of cancer. VIEWS: The views performed were: left craniocaudal spot compression; left mediolateral oblique spot compression; and left mediolateral with tomosynthesis. FILMS COMPARED: The present examination has been compared to prior imaging studies performed at [facility] on 11/12/2018 and 11/13/2018. MAMMOGRAM FINDINGS: There are scattered fibroglandular densities. There is an equal density, oval mass measuring 9 millimeters with circumscribed margins seen in the outer region of the left breast. An intramammary lymph node is demonstrated sonographically in this location. There are no suspicious masses, suspicious calcifications, or new areas of architectural distortion. IMPRESSION: THERE IS NO MAMMOGRAPHIC EVIDENCE OF MALIGNANCY. A ROUTINE FOLLOW-UP MAMMOGRAM IN 1 YEAR IS RECOMMENDED. THE RESULTS OF THIS EXAM WERE SENT TO THE PATIENT. ACR BI-RADS Category 2 - Benign finding MAMMOGRAPHY NOTE: 1. A negative mammogram report should not delay a biopsy if a dominant of clinically suspicious mass is present. 2. Approximately 10% to 15% of breast cancers are not detected by mammography. 3. Adenosis and dense breasts may obscure an underlying neoplasm. Reported by: HUMBERTO CHOUDHURY MD Electonically Signed: [id number]
--- NOTE | 2018-11-13 12:33 | ULT ---
LIMITED LEFT BREAST ULTRASOUND: 11/13/18 PROVIDED CLINICAL HISTORY: Abnormal screening mammogram. FINDINGS: Limited sonographic interrogation of the left breast was performed in the region of mammographic conc sushma. There is an intramammary lymph node seen in this location, corresponding to the mammogram findin g. IMPRESSION: BIRADS 2: Benign Finding(s) Routine annual screening mammography (for women over age 40). POS: [facility]
== END 2018-11-13 10:03 | disposition home or self-care (01) ==
LOC: BICMAMMO 10:02
PROVIDERS: ATTEND Family Medicine
DX: N63.20 Unspecified lump in the left breast, unspecified quadrant (principal)
CPT/HCPCS: G0279

== ENCOUNTER 2018-12-15 00:50 | Emergency (ER) | payer OTHER ==
[2018-12-15] MEDS ORDERED: Adacel (T-DAP) 0.5 ML SYRINGE ONE (01:13)
[2018-12-15] MEDS ORDERED: Bacitracin 1 PK ONE (01:16)
--- NOTE | 2018-12-15 09:38 | RAD ---
LEFT ANKLE THREE VIEWS: INDICATIONS: Bruises on arm and stomach with laceration to the right foot after a fall. COMPARISON: None. FINDINGS: The ankle mortise and talar dome are normal appearing. No acute fracture or subluxation is evident. T he visualized hindfoot is within normal limits. There is mild enthesopathic change of the calcaneus. There is soft tissue swelling of the distal foreleg, ankle and foot. IMPRESSION: No acute osseous abnormality. POS: [facility]
== END 2018-12-15 01:52 | disposition home or self-care (01) ==
LOC: ERS 00:50
DX: S91.115A Laceration without foreign body of left lesser toe(s) without damage to nail, initial encounter (principal); S93.402A Sprain of unspecified ligament of left ankle, initial encounter; I25.10 Atherosclerotic heart disease of native coronary artery without angina pectoris; I11.0 Hypertensive heart disease with heart failure; I50.9 Heart failure, unspecified; I25.2 Old myocardial infarction; E78.5 Hyperlipidemia, unspecified; E78.00 Pure hypercholesterolemia, unspecified; J45.909 Unspecified asthma, uncomplicated; F41.9 Anxiety disorder, unspecified; F31.9 Bipolar disorder, unspecified; Z95.5 Presence of coronary angioplasty implant and graft; W01.0XXA Fall on same level from slipping, tripping and stumbling without subsequent striking against object, initial encounter
CPT/HCPCS: 90715

== ENCOUNTER 2018-12-31 19:43 | Inpatient (IN) | payer OTHER ==
[~2018-12-31 19:43] MED LIST changes: -Iopamidol 370 76% 100 ML VIAL ONE
--- NOTE | 2018-12-31 20:17 | RAD ---
Exam: Chest one view HISTORY:Syncope Comparison: 07/25/2018 FINDINGS: Lungs: No masses or consolidation. Cardiac silhouette:Accentuated by technique Pulmonary vessels: Normal Pleural Spaces: Clear Pneumothorax: None Osseous abnormalities: None of acuity. IMPRESSION: No focal consolidation.
[2018-12-31 20:21] LABS: #Basophils 0.1 thou/uL (0.0-0.2); #Eosinphils 0.3 thou/uL (0.0-0.7); #Lymphocytes 2.5 thou/uL (1.20-3.40); #Monocytes 0.7 thou/uL (0.11-0.59); #Neutrophils 8.3 thou/uL (1.40-6.50); %Basophils 0.7 % (0.0-1.0); %Eosinophils 2.6 % (0.0-10.0); %Lymphocytes 20.6 % (21.0-51.0); %Monocytes 5.9 % (0.0-10.0); %Neutrophils 70.2 % (42.0-75.0); Hemoglobin 14.6 g/dL (12.0-16.0); Mean Corpuscular HGB CONC 34.7 g/dL (32.0-36.0); Mean Corpuscular Hemoglobin 29.1 pg (27.0-31.0); Mean Platelet Volume 7.2 fL (7.4-10.4); Platelet Count 268 thou/uL (130-400); RBC Distribution Width 12.8 % (11.5-14.5); Red Blood Cell (RBC) Count 5.03 mill/uL (4.20-5.40); White Blood Cell (WBC) Count 11.9 thou/uL (4.8-10.8)
[2018-12-31 20:45] LABS: ALT (SGPT) 10 U/L (8-55); AST (SGOT) 11 U/L (5-34); Albumin 4.1 g/dL (3.5-5.0); Alkaline Phosphatase 94 U/L (40-110); Anion Gap 15 mmol/L (10-20); BUN (Urea Nitrogen) 21 mg/dL (7.0-18.7); Bilirubin, Total 0.4 mg/dL (0.2-1.2); Calc. Creatinine Clearance 0 mL/min (70-130); Calcium 9.5 mg/dL (7.8-10.44); Carbon Dioxide 25 mmol/L (22-29); Chloride 99 mmol/L (98-107); Estimated GFR-MDRD 67; Globulin 3.9 g/dL (2.4-3.5); Glucose 147 mg/dL (70-105); Lipase 10 U/L (8-78); Potassium 3.6 mmol/L (3.5-5.1); Sodium 135 mmol/L (136-145)
[2018-12-31] MEDS ORDERED: Acetaminophen 500 MG TAB ONE (21:28)
--- NOTE | 2018-12-31 22:01 | CT ---
CT Brain WO Con: 12/31/2018 9:34 PM CLINICAL HISTORY: Syncope. COMPARISON: None. FINDINGS: Hemorrhage: None. Ventricular system: Normal in size and morphology for the patient's age. Cerebral parenchyma: Microvascular ischemic disease Midline shift: None. Mass: No mass effect. Calvarium: Normal. Visualized Paranasal sinuses: Clear. IMPRESSION: No acute intracranial abnormalities.
--- NOTE | 2018-12-31 22:09 | CT ---
CTA CHEST WITH CONTRAST, AND 3-D VOLUME RENDERING CLINICAL INDICATION: Short of breath; Elevated D-dimer Comparison exam: None FINDINGS: Pulmonary embolus:No significant filling defect is identified within the pulmonary arteries. Pulmonary parenchymal consolidation:None Pleural effusion: None Pneumothorax: None Osseous structures: No acute process. IMPRESSION: No acute pulmonary embolus.
[2018-12-31] MEDS ORDERED: Aspirin Chewable 81 MG TAB ONE (22:44)
[2018-12-31] MEDS ORDERED: Ondansetron PF 4 MG/2 ML Vial IVP PRN (23:59)
[2018-12-31] MEDS ORDERED: Ondansetron ODT 4 MG TAB SL PRN (23:59)
[2018-12-31] MEDS ORDERED: Acetaminophen 325 MG TAB PO PRN (23:59)
--- NOTE | 2019-01-01 00:13 | PDOC.EVN ---
Event Note - Event Note Event Note: [id number] HP
[2019-01-01 00:17] VITALS: BMI 42.9
--- NOTE | 2019-01-01 01:02 | HP ---
CHIEF COMPLAINT: Syncope. HISTORY OF PRESENT ILLNESS: Ms. Tolentino is a 43-year-old female with a very significant cardiac history including myocardial infarction, 15 cardiac stents, recurrent syncope, presented to the emergency room after syncopal episode last night. The patient also has a history of severe mitral regurgitation, congestive heart failure. The patient reported that she called Dr. Daily, her physician and was told to come to the emergency room for evaluation. The patient has been sitting with her legs elevated secondary to having swelling to bilateral lower extremities. The patient is taking 40 mg of Lasix twice a day. The patient is on Plavix, but been taken off a few months ago and she states she is only taking a baby aspirin. Initial workup in the emergency room, the patient was found to have a prolonged QT, CT angiogram of the chest is negative for PE. The patient is being admitted to the hospital for further management. PAST MEDICAL HISTORY: 1. Coronary artery disease. 2. Congestive heart failure. 3. Myocardial infarction with 15 cardiac stents. 4. Hyperlipidemia. 5. Hypertension. 6. Asthma. 7. Mitral regurgitation. PAST SURGICAL HISTORY: 1. Spine surgery. 2. section x3. 3. Cardiac stents. 4. Hernia repair. PAST PSYCHIATRIC HISTORY: Anxiety, bipolar disorder. SOCIAL HISTORY: Denies smoking, alcohol drinking, or drug use. FAMILY HISTORY: Reviewed and noncontributory. ALLERGIES: ALLERGIC TO LEVAQUIN. HOME MEDICATIONS: Please see home medication reconciliation form for updated medications. REVIEW OF SYSTEMS: Review of 14 systems negative except what is mentioned in the history of present illness. PHYSICAL EXAMINATION: GENERAL: The patient is awake, alert, does not appear to be in acute distress. VITAL SIGNS: Blood pressure 131/89, pulse of 81, respiratory rate 16, pulse oximetry is 98% on room air, temperature 99.7. HEAD AND NECK: Normocephalic, atraumatic. NECK: Supple. No JVD. CHEST: Fair bilateral air entry. HEART: S1, S2. Regular. ABDOMEN: Soft, nontender. Bowel sounds present. NEUROLOGIC: Awake, alert, oriented x3. PSYCHIATRIC: Normal mood. EXTREMITIES: No clubbing, or cyanosis. LABORATORY DATA: CBC; WBC count 11.9, otherwise unremarkable. Sodium is 135, potassium 3.6, glucose 147, troponin 0.01. DIAGNOSTIC STUDIES: CT angiogram of the chest as mentioned above in history of present illness. ASSESSMENT: 1. Syncope, recurrent. 2. Coronary artery disease with history of myocardial infarction and multiple cardiac stents. 3. Hypertension. 4. Hyperlipidemia. 5. Bipolar disorder. PLAN: 1. Admit. 2. Telemetry monitoring. 3. Serial cardiac enzymes. 4. Consult the patient's grips for evaluation and further management. 5. Reconcile home medications. 6. Deep venous thrombosis prophylaxis, early ambulation/low-molecular weight heparin. 7. Expected length of stay, 2 midnights or more. Job ID: [id number]
[2019-01-01 01:14] LABS: Troponin I Less than 0.010 ng/mL (< 0.028)
[2019-01-01 03:43] LABS: Troponin I Less than 0.010 ng/mL (< 0.028)
[2019-01-01] MEDS: Enoxaparin Sodium 40 MG/0.4 ML SYRINGE SC SCH (08:42)
[2019-01-01] MEDS ORDERED: Aspirin 325 mg Enteric Coated Tablet PO SCH (09:00)
[2019-01-01] MEDS ORDERED: Sodium Chloride 0.9% 10 ML ONE (11:49)
[2019-01-01] MEDS ORDERED: Lidocaine 1% (PF) 30 ML VIAL ONE ×2 (12:24→13:40)
[2019-01-01] MEDS ORDERED: Fentanyl 100 MCG/2 ML VIAL ONE (13:00)
[2019-01-01] MEDS ORDERED: Midazolam HCl 2 mg/2 ml Vial ONE ×2 (13:00→13:56)
[2019-01-01] MEDS ORDERED: Propofol 500 MG/50 ML VIAL ONE (13:00)
[2019-01-01] MEDS ORDERED: PROPOFOL 20 ML ONE (14:34)
--- NOTE | 2019-01-01 15:28 | OP ---
DATE OF PROCEDURE: 01/01/2019 PROCEDURE PERFORMED: Central line placement. REASON FOR PROCEDURE: Ms. Tolentino is a 43-year-old woman with history of congestive heart failure and ischemic cardiomyopathy, presenting with syncopal spell. She had repeat echo and shows decreased LVEF. She is here for ICD insertion and there was difficulty to find appropriate working IV site for the anesthesia. DESCRIPTION OF PROCEDURE: The patient's right neck was prepped, draped, and anesthetized with subcutaneous lidocaine. Under ultrasound guidance, the right internal jugular vein was cannulated without difficulty, through over the wire, a standard triple-lumen central venous catheter was inserted. Fluoroscopy was used to verify position and the triple-lumen catheter was sutured to the neck. CONCLUSION: Successful right internal jugular venous triple-lumen central venous catheter placement. PLAN: Routine central venous line care. Job ID: [id number]
[2019-01-01] MEDS ORDERED: Acetaminophen/Codeine 30-300mg Tablet ONE (15:49)
--- NOTE | 2019-01-01 16:11 | RAD ---
FRONTAL RADIOGRAPH CHEST PORTABLE UPRIGHT: 01/01/19 COMPARISON: 12/31/18 HISTORY: Evaluate chest following AICD placement. FINDINGS: There is a new single lead transvenous AICD inserted via a left subclavian approach. Distal tip overl ies the region of the right ventricle. No pneumothorax or pleural fluid. No focal consolidation or al veolar edema. Right vascular catheter noted, distal tip overlying the region of the cavoatrial junction. IMPRESSION: New single lead left sided AICD with no evidence for pneumothorax. POS: [facility]
[2019-01-01] MEDS ORDERED: Morphine 2 MG/ML SYRINGE SLOW IVP SCH ×2 (18:45→23:00)
[2019-01-01] MEDS ORDERED: Iopamidol 370 76% 50 ML VIAL FS ONE (20:14)
[2019-01-01] MEDS: Carvedilol 6.25 MG TAB PO SCH (20:50)
[2019-01-01] MEDS: busPIRone HCl 5 MG TAB PO SCH (20:50)
[2019-01-01] MEDS: hydrOXYzine 25 MG TAB PO SCH (20:51)
[2019-01-01] MEDS: Furosemide 40 MG TAB PO SCH (20:52)
[2019-01-01] MEDS ORDERED: traMADol HCl 50 MG TAB PO PRN (22:54)
--- NOTE | 2019-01-01 23:03 | PDOC.HOSPP ---
- Subjective Subjective: Reports some pain related to the placement of the AICD. - Objective Vital Signs & Weight: Vital Signs (12 hours) Temp Pulse Resp BP Pulse Ox 01/01/19 19:27 98.0 F 74 16 123/69 98 01/01/19 16:25 97.4 F L 75 20 120/85 97 Weight Admit Weight 250 lb Weight 250 lb I&O: 12/31/18 01/01/19 01/02/19 06:59 06:59 06:59 Intake Total 480 Balance 480 Result Diagrams: 12/31/18 20:09 12/31/18 20:09 Additional Labs: Accuchecks 01/01/19 20:21 POC Glucose 105 Hospitalist ROS - Medication Medications: Active Medications Generic Name Dose Route Start Last Admin Trade Name Rosibel PRN Reason Stop Dose Admin Aspirin 325 mg 01/01/19 09:00 01/01/19 08:42 Ecotrin PO Not Given DAILY GEOFF Buspirone HCl 7.5 mg 01/01/19 21:00 01/01/19 20:50 Buspar PO 7.5 mg BID GEOFF Administration Carvedilol 12.5 mg 01/01/19 21:00 01/01/19 20:50 Coreg PO 12.5 mg BID GEOFF Administration Enoxaparin Sodium 40 mg 01/01/19 09:00 01/01/19 08:42 Lovenox SC Not Given 0900 [facility] Furosemide 40 mg 01/01/19 21:00 01/01/19 20:52 Lasix PO Not Given BID [facility] Hydroxyzine HCl 25 mg 01/01/19 21:00 01/01/19 20:51 Atarax PO 25 mg TID GEOFF Administration - Exam General Appearance: NAD, awake alert General - other findings: Obese Heart: RRR, no murmur, no gallops, no rubs, normal peripheral pulses Heart - other findings: AICD incision site ok. Respiratory: CTAB, no wheezes, no rales, no ronchi, normal chest expansion, no tachypnea, normal percussion Gastrointestinal: soft, non-tender, non-distended, normal bowel sounds, no palpable masses, no hepatomegaly, no splenomegaly, no bruit Extremities: no cyanosis, no clubbing, no edema Musculoskeletal: normal tone Psychiatric: flat affect Hosp A/P (1) Syncope Code(s): R55 - SYNCOPE AND COLLAPSE Status: Acute (2) Cardiomyopathy Code(s): I42.9 - CARDIOMYOPATHY, UNSPECIFIED Status: Acute (3) S/P implantation of automatic cardioverter/defibrillator (AICD) Code(s): Z95.810 - PRESENCE OF AUTOMATIC (IMPLANTABLE) CARDIAC DEFIBRILLATOR Status: Acute (4) Acute on chronic systolic ACC/AHA stage C congestive heart failure Code(s): I50.23 - ACUTE ON CHRONIC SYSTOLIC (CONGESTIVE) HEART FAILURE Status : Acute (5) Anxiety and depression Code(s): F41.9 - ANXIETY DISORDER, UNSPECIFIED; F32.9 - MAJOR DEPRESSIVE DISORDER, SINGLE EPISODE, UNSPECIFIED Status: Acute (6) Morbid obesity Code(s): E66.01 - MORBID (SEVERE) OBESITY DUE TO EXCESS CALORIES Status: Acute (7) History of coronary artery stent placement Code(s): Z95.5 - PRESENCE OF CORONARY ANGIOPLASTY IMPLANT AND GRAFT Status: Chronic (8) Hyperlipidemia Code(s): E78.5 - HYPERLIPIDEMIA, UNSPECIFIED Status: Chronic (9) Hypertension Code(s): I10 - ESSENTIAL (PRIMARY) HYPERTENSION Status: Chronic Qualifiers: Hypertension type: essential hypertension Qualified Code(s): I10 - Essential (primary) hypertension (10) FILIBERTO (obstructive sleep apnea) Code(s): G47.33 - OBSTRUCTIVE SLEEP APNEA (ADULT) (PEDIATRIC) Status: Suspected - Plan Doing well post procedure. Having some pain. Will give dose of Morphine. Dr. Abimbola wiggins.
[2019-01-01] MEDS ORDERED: HYDROcodone/Acetaminophen 10/325 mg Tablet PO PRN (23:23)
[2019-01-02] MEDS: HYDROcodone/Acetaminophen 10/325 mg Tablet PO PRN ×2 (03:34→09:11)
[2019-01-02] MEDS: Carvedilol 6.25 MG TAB PO SCH (08:14)
[2019-01-02] MEDS: Enoxaparin Sodium 40 MG/0.4 ML SYRINGE SC SCH (08:15)
[2019-01-02] MEDS: Furosemide 40 MG TAB PO SCH (08:15)
[2019-01-02] MEDS: busPIRone HCl 5 MG TAB PO SCH (08:17)
[2019-01-02] MEDS: hydrOXYzine 25 MG TAB PO SCH (08:18)
[2019-01-02] MEDS ORDERED: Ezetimibe 10 MG TAB PO SCH (09:00)
[2019-01-02] MEDS ORDERED: Aspirin 81 mg Enteric Coated Tablet PO SCH (09:00)
[2019-01-02] MEDS ORDERED: Prasugrel 10 MG TAB PO SCH (09:00)
[2019-01-02] MEDS ORDERED: Isosorbide Mononitrate 20 MG TAB PO SCH (09:00)
[2019-01-02] MEDS ORDERED: Rosuvastatin 20 MG TAB PO SCH (09:00)
--- NOTE | 2019-01-02 09:15 | PRG ---
DATE OF SERVICE: 01/02/2019 SUBJECTIVE: Ms. Tolentino is doing well. No current complaints. OBJECTIVE: VITAL SIGNS: Blood pressure 126/79, pulse 69, and temperature 97.7. LUNGS: Clear to auscultation. HEART: Regular rate and rhythm. ABDOMEN: Soft, nontender, and nondistended. EXTREMITIES: No edema. PERTINENT LABORATORY DATA: Hemoglobin 14.6. Troponin negative. IMPRESSION: 1. Syncope. 2. Ischemic cardiomyopathy. 3. Status post stent placement. 4. Previous myocardial infarction. RECOMMENDATION: 1. Ms. Tolentino is status post ICD placement. 2. From a heart failure standpoint, we will recommend continuing aspirin, carvedilol, Zetia, p.o. Lasix, and isosorbide, in addition, Crestor and Effient. 3. May consider adding Entresto as an outpatient. 4. From a CV standpoint, she appears to be euvolemic. I have no further recommendations. Job ID: [id number]
[2019-01-02 11:15] VITALS: BP 134/76; TEMP 97.5
--- NOTE | 2019-01-02 15:07 | PDOC.CPN ---
- Subjective Date: 01/02/19 Time: 08:00 Interval history: EP PROGRESS NOTE: 01/02/19 Patient stable after ICD impant yesterday. having some pain at implant site. Otherwise no new concerns or complaints. - Review of Systems General: denies: fever/chills, weight/appetite/sleep changes, night sweats, fatigue Respiratory: denies: cough, congestion, shortness of breath, exercise intolerance Cardiovascular: denies: chest pain, palpitation, edema, paroxysmal nocturnal dyspnea, orthopnea Gastrointestinal: denies: nausea, vomiting, diarrhea, constipation, abd pain, GI bleeding Musculoskeletal: reports: pain (ICD implant incision pain and chronic back pain) - Objective Allergies/Adverse Reactions: Allergies Allergy/AdvReac Type Severity Reaction Status Date / Time levofloxacin [From Levaquin] Allergy Verified 07/25/16 00:43 Vital Signs & Weight: Vital Signs Temp Pulse Resp BP Pulse Ox 01/02/19 11:13 97.5 F L 80 18 134/76 97 01/02/19 07:23 97.7 F 69 17 126/79 99 01/02/19 03:29 98.1 F 75 20 114/69 98 Admit Weight 250 lb Weight 250 lb - Physical Exam General: alert & oriented x3, appears well, no apparent distress HEENT: mucus membranes moist Neck: supple neck Cardiac: regular rate and rhythm Lungs: clear to auscultation Neuro: grossly intact Abdomen: soft, non-tender Skin: other (incision CDI. Small amount of blood. Steri-strips intact. skin taut d/t habitus.) - Labs Result Diagrams: 12/31/18 20:09 12/31/18 20:09 Troponin/CKMB Troponin I Less than 0.010 ng/mL (< 0.028) 01/01/19 03:11 - Telemetry Sinus rhythms and dysrhythmias: sinus rhythm - Assessment/Plan Assessment/Plan: 1. Ventricular tachycardia 2. Single chamber ICD - stable check and CXR this AM. Continue post ICD antibiotics x 7 days. 2 week wound check scheduled. Offered T# 3 for pain, patient declined. Recommend Tylenol and Motrin PRN for pain. OK for DC.
== END 2019-01-02 12:25 | disposition home or self-care (01) | DRG 226 ==
LOC: ERS 19:43 → 2NO 22:29
PROVIDERS: ADMIT Internal Medicine; ATTEND Internal Medicine
PROC: 0JH608Z Insertion of Defibrillator Generator into Chest Subcutaneous Tissue and Fascia, Open Approach (ICD-10-PCS; principal; 2019-01-01)
PROC: 02HK3KZ Insertion of Defibrillator Lead into Right Ventricle, Percutaneous Approach (ICD-10-PCS; 2019-01-01)
PROC: 05HM33Z Insertion of Infusion Device into Right Internal Jugular Vein, Percutaneous Approach (ICD-10-PCS; 2019-01-01)
PROC: B513YZA Fluoroscopy of Right Jugular Veins using Other Contrast, Guidance (ICD-10-PCS; 2019-01-01)
DX: R55 Syncope and collapse (principal); I50.43 Acute on chronic combined systolic (congestive) and diastolic (congestive) heart failure; I47.2 Ventricular tachycardia; I11.0 Hypertensive heart disease with heart failure; I34.0 Nonrheumatic mitral (valve) insufficiency; E78.5 Hyperlipidemia, unspecified; E78.00 Pure hypercholesterolemia, unspecified; J45.909 Unspecified asthma, uncomplicated; F41.9 Anxiety disorder, unspecified; F31.9 Bipolar disorder, unspecified; I25.5 Ischemic cardiomyopathy; G47.33 Obstructive sleep apnea (adult) (pediatric); E66.01 Morbid (severe) obesity due to excess calories; I25.2 Old myocardial infarction; Z95.5 Presence of coronary angioplasty implant and graft
CPT/HCPCS: 33249; 36005; 36415; 36416; 36569; 70450; 71045; 71275; 75820; 80053; 83690; 83880; 84484; 85025; 85379; 93005; 93306; 93641; C1777; C1786; J0690; J1650; J2001; J2250; J2270; J2704; J3010; J3490; Q9967

== ENCOUNTER 2019-05-26 14:08 | Outpatient (CLI) | payer OTHER | END 2019-05-26 14:09 | disposition home or self-care (01) | LOC: DTY/OP 14:08 | PROVIDERS: ATTEND Specialist | DX: Z01.818 Encounter for other preprocedural examination (principal); E66.01 Morbid (severe) obesity due to excess calories | CPT/HCPCS: 97802 ==

== ENCOUNTER 2019-06-26 14:30 | Outpatient (CLI) | payer OTHER | END 2019-06-26 14:31 | disposition home or self-care (01) | LOC: DTY/OP 14:30 | PROVIDERS: ATTEND Specialist | DX: Z01.818 Encounter for other preprocedural examination (principal); E66.01 Morbid (severe) obesity due to excess calories | CPT/HCPCS: 97802 ==

== ENCOUNTER 2019-08-03 11:35 | Emergency (ER) | payer OTHER ==
[2019-08-03] MEDS ORDERED: HYDROcodone/Acetaminophen 5/325 mg Tablet ONE (11:55)
[2019-08-03] MEDS ORDERED: Acetaminophen 500 MG TAB ONE (11:56)
[2019-08-03] MEDS ORDERED: Ketorolac Tromethamine 30 MG/ML VIAL ONE (11:56)
== END 2019-08-03 12:25 | disposition home or self-care (01) ==
LOC: ERS 11:35
DX: M62.830 Muscle spasm of back (principal); Z79.899 Other long term (current) drug therapy; Z79.82 Long term (current) use of aspirin; V89.2XXA Person injured in unspecified motor-vehicle accident, traffic, initial encounter
CPT/HCPCS: 96372; 99283; J1885

== ENCOUNTER 2019-08-08 09:53 | Outpatient (CLI) | payer OTHER | END 2019-08-08 09:54 | disposition home or self-care (01) | LOC: DTY/OP 09:53 | PROVIDERS: ATTEND Specialist | DX: Z01.818 Encounter for other preprocedural examination (principal); E66.01 Morbid (severe) obesity due to excess calories | CPT/HCPCS: 97802 ==

== ENCOUNTER 2019-09-23 22:50 | Observation (INO) | payer OTHER ==
--- NOTE | 2019-09-23 23:36 | RAD ---
Chest AP view INDICATION: Lightheadedness and weakness COMPARISON: Single view of the chest dated December 31, 2018 FINDINGS: Lungs: The lungs are clear Cardiac silhouette: Mild cardiomegaly is stable. Single lead AICD has been intervally placed. Pulmonary vasculature: Normal Pleural spaces: No pleural effusion or pneumothorax is demonstrated. Upper abdomen: No abnormality seen. Osseous structures: No acute osseous abnormality. Additional findings: None. IMPRESSION: Stable cardiomegaly. New single lead AICD overlying the left chest wall.
[2019-09-23 23:42] LABS: #Basophils 0.1 thou/uL (0.0-0.2); #Eosinphils 0.2 thou/uL (0.0-0.7); #Lymphocytes 2.5 thou/uL (1.20-3.40); #Neutrophils 15.5 thou/uL (1.40-6.50); %Basophils 0.3 % (0.0-1.0); %Eosinophils 1.2 % (0.0-10.0); %Lymphocytes 12.9 % (21.0-51.0); %Monocytes 5.1 % (0.0-10.0); %Neutrophils 80.5 % (42.0-75.0); Hemoglobin 14.6 g/dL (12.0-16.0); Mean Corpuscular HGB CONC 32.7 g/dL (32.0-36.0); Mean Corpuscular Hemoglobin 27.9 pg (27.0-31.0); Mean Corpuscular Volume 85.5 fL (78.0-98.0); Mean Platelet Volume 7.6 fL (7.4-10.4); Platelet Count 271 thou/uL (130-400); RBC Distribution Width 13.2 % (11.5-14.5); Red Blood Cell (RBC) Count 5.23 mill/uL (4.20-5.40); White Blood Cell (WBC) Count 19.2 thou/uL (4.8-10.8)
[2019-09-23 23:50] LABS: BHCG - Serum Negative (NEGATIVE); Pregs Control Background? CLEAR/WHITE (CLR/WHITE); Pregs Control Bar Appear? YES (CONTROL BAR)
[2019-09-24 00:02] LABS: ALT (SGPT) 13 U/L (8-55); AST (SGOT) 10 U/L (5-34); Albumin 3.9 g/dL (3.5-5.0); Alkaline Phosphatase 95 U/L (40-110); Anion Gap 16 mmol/L (10-20); BUN (Urea Nitrogen) 18 mg/dL (7.0-18.7); Bilirubin, Total 0.5 mg/dL (0.2-1.2); Calc. Creatinine Clearance 0 mL/min (70-130); Calcium 8.3 mg/dL (7.8-10.44); Carbon Dioxide 24 mmol/L (22-29); Chloride 103 mmol/L (98-107); Estimated GFR-MDRD 51; Globulin 3.7 g/dL (2.4-3.5); Glucose 100 mg/dL (70-105); Potassium 3.4 mmol/L (3.5-5.1); Protein, Total 7.6 g/dL (6.0-8.3); Sodium 140 mmol/L (136-145)
[2019-09-24] MEDS ORDERED: cefTRIAXone\\ROCEPHIN 1 GM VIAL ONE (01:07)
[2019-09-24 01:17] LABS: Bilirubin Negative (Negative); Blood, Urine 2+ (Negative); Clarity Turbid (Clear); Glucose, Urine (Dipstick) Normal (Negative); Ketone, Urine Negative (Negative); Leukocyte 25 Leu/uL (Negative); Nitrite Negative (Negative); Protein, Urine (Dipstick) 20 mg/dL (Neg-Trace); RBC/HPF 0-3 HPF (0-3); Specific Gravity, Urine 1.016 (1.002-1.036); Urobilinogen Normal mg/dL (Less than 2)
[2019-09-24 01:18] LABS: Bacteria/HPF Rare-Few HPF (None Seen)
[2019-09-24 02:58] LABS: Troponin I Less than 0.010 ng/mL (< 0.028)
[2019-09-24 03:17] VITALS: BMI 41.5
--- NOTE | 2019-09-24 05:34 | HP ---
REASON FOR ADMISSION: Lightheadedness. HISTORY OF PRESENT ILLNESS: This is a 44-year-old female patient, who today felt lightheaded, took her blood pressure and it was 80/60. She was brought to the emergency room. Currently, she denies any chest pain or shortness of breath. No dysuria. She tells me that she follows with Dr. Burgos and she does have an AICD. Recently, she was told by the Cardiology office that her fluid level was high and she should go to the emergency room whenever she feels any symptom. The patient has been stressed out. She lost her father's daughter recently approximately a week ago. Otherwise, since her last admission to our hospital, she has been doing fairly well except for one episode of loss of consciousness. I did review her records and her last admission to the hospital was in December 2018 for syncopal episodes. It was noted that she has recurrent episodes of syncope. She did undergo CTA of the chest that was negative for PE. Her CT of brain was unremarkable. EKG showed some prolonged QT. She was admitted to the hospital, underwent an echocardiogram that showed an EF of 30% to 35% and subsequently had an AICD placed. She was then discharged. PAST MEDICAL HISTORY: 1. Coronary artery disease, status post 15 cardiac stents. 2. Congestive heart failure. 3. High cholesterol. 4. High blood pressure. 5. Asthma. 6. Mitral regurgitation. 7. Status post AICD. PAST SURGICAL HISTORY: 1. Spinal surgery. 2. . 3. Cardiac stents. 4. Hernia repair. PAST PSYCHIATRIC HISTORY: 1. Anxiety. 2. Bipolar. SOCIAL HISTORY: She does not smoke. Does not drink alcohol. Does not use illegal substance. FAMILY HISTORY: Reviewed, found to be noncontributory. ALLERGIES: LEVAQUIN. REVIEW OF SYSTEMS: All systems reviewed except the above mentioned, found to be negative. PHYSICAL EXAMINATION: GENERAL: Awake, alert, oriented, does not appear in distress. VITAL SIGNS: Her blood pressure is 99/65, heart rate of 82, and saturating 98% on room air. HEENT: Head is nontraumatic and normocephalic. Pupils equal, reactive. Extraocular movements are intact. Nonicteric sclerae. Well-injected conjunctivae. Oral mucosa normal. Nasal mucosa normal. NECK: Supple. No adenopathy. No murmur. Thyroid is not palpable. Trachea is midline. No supraclavicular adenopathy. HEART: S1 and S2, regular. No murmur. No gallop. No friction rubs. No nondisplacement of PMI. LUNGS: Clear to auscultation bilaterally. No wheezes or rhonchi. No crackles. ABDOMEN: Bowel sounds positive. Nontender abdomen. No hepatosplenomegaly. EXTREMITIES: No lower extremity edema. No cyanosis. NEUROLOGIC: Cranial nerves 2 through 12 within normal limits. Normal motor function. Normal sensory function. Normal reflexes. LABORATORY DATA: Blood work shows WBC of 19.2, hemoglobin 14.6, neutrophil count 80.5%, platelet count 271. Sodium of 140, potassium 3.4, creatinine of 1.37, previous creatinine 1.09. Troponin less than 0.01. Urinalysis shows leukocyte esterase. IMAGING: Her EKG is normal sinus rhythm, no ST-segment or T-wave changes per my read. ASSESSMENT AND PLAN: This is a 44-year-old female patient, who is presenting after an episode of lightheadedness and low blood pressure. In the emergency room, her blood pressure did improve, but now it is a bit on the low side. There was no recent change in her medications. She follows with Cardiology, Dr. Burgos as an outpatient. The patient does have an increased white count, only explanation is that her urine is positive for an infection. ID. The patient has most likely urinary tract infection. We will start her on Rocephin. She did receive a dose in the emergency room, awaiting urine culture and sensitivity. Cardiac. The patient did have an episode of lightheadedness. Her blood pressure was reported to be 80/60. There was some improvement in the emergency room, but back down to systolics 99, the patient will be admitted to telemetry. We will continue trending her cardiac enzymes, I am awaiting her home medications to be reconciled and planning to hold her Coreg and her Imdur, but continue with Lasix and monitor the blood pressure, also plan to consult Cardiology. For deep venous thrombosis prophylaxis, she will be on SCDs. The patient is full code. Job ID: [id number]
[2019-09-24 06:06] LABS: Troponin I 0.019 ng/mL (< 0.028)
[2019-09-24] MEDS: hydrOXYzine 25 MG TAB PO SCH ×3 (08:18→21:57)
[2019-09-24] MEDS: Heparin 5,000 UNITS/ML VIAL SC SCH ×3 (08:18→21:56)
[2019-09-24] MEDS: Prasugrel 10 MG TAB PO SCH (08:19)
[2019-09-24] MEDS: Aspirin 81 mg Enteric Coated Tablet PO SCH (08:19)
[2019-09-24] MEDS: Baclofen 10 MG TAB PO SCH (08:19)
[2019-09-24] MEDS: Aripiprazole 15 MG TAB PO SCH (08:19)
[2019-09-24] MEDS: busPIRone HCl 5 MG TAB PO SCH ×2 (08:19→21:56)
[2019-09-24] MEDS: Bumetanide 1 MG TAB PO SCH ×2 (08:20→15:14)
[2019-09-24] MEDS: Ezetimibe 10 MG TAB PO SCH (08:20)
[2019-09-24] MEDS: Pregabalin 75 MG CAP PO SCH (08:21)
[2019-09-24] MEDS ORDERED: Non-Formulary Item 1 EACH (Pregabalin [Lyrica] 150 MG) PO SCH (09:00)
[2019-09-24] MEDS ORDERED: Non-Formulary Item 1 EACH (Buspirone Hcl [Buspirone Hcl] 7.5 MG) PO SCH (09:00)
[2019-09-24] MEDS ORDERED: Non-Formulary Item 1 EACH (Rosuvastatin Calcium [Crestor] 40 MG) PO SCH (09:00)
[2019-09-24] MEDS ORDERED: Non-Formulary Item 1 EACH (Bumetanide [Bumetanide] 2 MG) PO SCH (09:00)
[2019-09-24] MEDS ORDERED: Non-Formulary Item 1 EACH (Baclofen [Baclofen] 20 MG) PO SCH (09:00)
[2019-09-24 15:12] LABS: #Basophils 0.1 thou/uL (0.0-0.2); #Eosinphils 0.2 thou/uL (0.0-0.7); #Lymphocytes 3.1 thou/uL (1.20-3.40); #Monocytes 0.9 thou/uL (0.11-0.59); #Neutrophils 11.5 thou/uL (1.40-6.50); %Basophils 0.5 % (0.0-1.0); %Eosinophils 1.5 % (0.0-10.0); %Lymphocytes 19.6 % (21.0-51.0); %Monocytes 5.4 % (0.0-10.0); Hemoglobin 15.5 g/dL (12.0-16.0); Mean Corpuscular HGB CONC 32.8 g/dL (32.0-36.0); Mean Corpuscular Hemoglobin 28.2 pg (27.0-31.0); Mean Corpuscular Volume 85.8 fL (78.0-98.0); Mean Platelet Volume 7.3 fL (7.4-10.4); Platelet Count 285 thou/uL (130-400); RBC Distribution Width 13.4 % (11.5-14.5); White Blood Cell (WBC) Count 15.8 thou/uL (4.8-10.8)
[2019-09-24 15:47] LABS: Anion Gap 14 mmol/L (10-20); BUN (Urea Nitrogen) 21 mg/dL (7.0-18.7); Calc. Creatinine Clearance 118 mL/min (70-130); Calcium 9.1 mg/dL (7.8-10.44); Carbon Dioxide 30 mmol/L (22-29); Chloride 98 mmol/L (98-107); Estimated GFR-MDRD 67; Glucose 88 mg/dL (70-105); Potassium 3.7 mmol/L (3.5-5.1); Sodium 138 mmol/L (136-145)
--- NOTE | 2019-09-24 16:39 | CON ---
DATE OF CONSULTATION: 09/24/2019 REASON FOR CONSULTATION: Presyncope. PRIMARY LEARNING AND DEVELOPMENT COORDINATOR: Dr. Jeffery Burgos. HISTORY OF PRESENT ILLNESS: Ms. Tolentino is a very pleasant 44-year-old female, who comes to the hospital for presyncopal spell. She was at home and she felt very lightheaded, checked her blood pressure. She states it was 60/40. She sat down, felt like she was going to pass out. 911 was called. When EMS arrived, her blood pressure was still low in the 80s over 60s range, but she was already feeling better. She was brought in for further evaluation. She has nonischemic cardiomyopathy with an EF of 30% to 35%. She underwent AICD placement about 8 months ago. She has had several episodes of syncope and presyncope since that have not correlated with any type of arrhythmias on the fibrillator. She has not received any therapies. No ATP or any shocks. Still pending to interrogate device at this time around. She apparently had been switched from Lasix to Bumex about 5 months ago, because the Lasix was not cutting it anymore. She was urinating as well and she has been taking Bumex 2 mg in the morning and 2 mg in the afternoon. She states she urinates really well with this. PAST MEDICAL HISTORY: 1. Coronary artery disease, status post multiple stents. 2. History of ischemic cardiomyopathy. 3. Hyperlipidemia. 4. Hypertension. 5. Bronchial asthma. 6. Mitral regurg. 7. Presence of an AICD. OUTPATIENT MEDICATIONS: 1. Lyrica 150 mg a day. 2. Aripiprazole. 3. Potassium chloride 20 mEq a day. 4. Baclofen. 5. Bumetanide 2 mg b.i.d. 6. Hydroxyzine 50 mg t.i.d. 7. Entresto 49/51 b.i.d. 8. BuSpar 7.5 b.i.d. 9. Crestor 40 mg a day. 10. Prasugrel 10 mg a day. 11. Zetia 10 mg a day. 12. Aspirin 81 a day. 13. Carvedilol 25 b.i.d. ALLERGIES: LEVOFLOXACIN. SURGICAL HISTORY: 1. Spinal surgery. 2. . 3. Cardiac stents above. 4. Hernia repair. SOCIAL HISTORY: No alcohol, tobacco, or drugs. FAMILY HISTORY: Noncontributory. REVIEW OF SYSTEMS: A 12-point review of systems was done and was all negative unless stated in the history of present illness. PHYSICAL EXAMINATION: VITAL SIGNS: Temperature 97.9, pulse 78, respiratory rate 18, sat 95% on room air, blood pressure 128/76. GENERAL: Awake, alert, oriented x3, in no distress. HEENT: Normocephalic, atraumatic. NECK: Supple. LUNGS: Clear. CARDIOVASCULAR: S1 and S2. No S3 or S4. No murmurs. ABDOMEN: Soft. Positive bowel sounds. EXTREMITIES: Trace edema. SKIN: Warm and dry. LABORATORY DATA: Laboratory work was reviewed. White count of 19 down to 15, hemoglobin of 15, hematocrit of 47, and platelet count of 285. Chemistry was unremarkable except for a potassium of 3.4. Troponin has been negative x2. Albumin was 3.9. test was negative. Urine study showed 2+ blood, 25 leukocyte esterase, 25 to 50 hyaline cast, and only 4 to 6 white cells. Her BUN and creatinine were high on arrival, she was 18/1.37, much better now after IV fluids at 1.08. Last echocardiogram was done back in December of 2018. She had an EF of 30% to 35%. Technically difficult study. ASSESSMENT: 1. Likely hypotensive, presyncopal episode. 2. Ischemic cardiomyopathy. 3. Dilated cardiomyopathy. 4. Presence of an AICD. PLAN: 1. Interrogate AICD device. 2. If no therapies have been delivered and no arrhythmias are seen, more than likely she is just probably being a little bit over diuresed. We will cut back on her Bumex to 2 mg in the morning and 1 mg in the afternoon and she would probably be able to go home. 3. We will get an echocardiogram as if her LV function has normalized. This may be relinquishing the need for any more diuretic or at least go significantly lower on her diuretic regimen as that may be the reason for her hypotension. 4. We will probably also have to come down on some of her blood pressure medications. I would probably cut the Entresto back in half. Thank you for letting us to participate in the care of your patient. Dr. Burgos, her primary line crew supervisor will follow up in the morning. Job ID: [id number]
[2019-09-24] MEDS ORDERED: Rosuvastatin 20 MG TAB PO SCH (21:00)
[2019-09-25] MEDS ORDERED: cefTRIAXone\\ROCEPHIN 1 GM in Sodium Chloride 0.9% 100 ML IVPB SCH (01:00)
[2019-09-25 05:03] LABS: #Basophils 0.1 thou/uL (0.0-0.2); #Eosinphils 0.3 thou/uL (0.0-0.7); #Lymphocytes 2.7 thou/uL (1.20-3.40); #Monocytes 0.7 thou/uL (0.11-0.59); %Basophils 0.5 % (0.0-1.0); %Eosinophils 2.1 % (0.0-10.0); %Lymphocytes 21.5 % (21.0-51.0); %Monocytes 5.3 % (0.0-10.0); %Neutrophils 70.6 % (42.0-75.0); Hemoglobin 14.2 g/dL (12.0-16.0); Mean Corpuscular HGB CONC 31.4 g/dL (32.0-36.0); Mean Corpuscular Hemoglobin 26.7 pg (27.0-31.0); Mean Corpuscular Volume 84.8 fL (78.0-98.0); Mean Platelet Volume 7.7 fL (7.4-10.4); Platelet Count 280 thou/uL (130-400); RBC Distribution Width 13.2 % (11.5-14.5); Red Blood Cell (RBC) Count 5.32 mill/uL (4.20-5.40); White Blood Cell (WBC) Count 12.7 thou/uL (4.8-10.8)
[2019-09-25 05:18] LABS: Anion Gap 14 mmol/L (10-20); BUN (Urea Nitrogen) 24 mg/dL (7.0-18.7); Calc. Creatinine Clearance 157 mL/min (70-130); Carbon Dioxide 24 mmol/L (22-29); Chloride 100 mmol/L (98-107); Estimated GFR-MDRD Greater than 90; Glucose 109 mg/dL (70-105); Magnesium 1.9 mg/dL (1.6-2.6); Sodium 134 mmol/L (136-145)
[2019-09-25] MEDS ORDERED: Carvedilol 6.25 MG TAB PO SCH (09:00)
[2019-09-25] MEDS ORDERED: Potassium Chloride 20 MEQ TAB PO SCH (09:00)
--- NOTE | 2019-09-25 09:04 | PRG ---
DATE OF SERVICE: 09/25/2019 SUBJECTIVE: Ms. Tolentino is doing well. No current complaints. She states she is feeling much better. She recently had a presyncopal episode. No true syncope. Her ICD did not suggest significant dysrhythmias. She did have an episode of ventricular tachycardia briefly in late August. This is asymptomatic. Her overall LVEF is diminished and unchanged. OBJECTIVE: VITAL SIGNS: Blood pressure 109/62, pulse 71, and temperature 97.6. LUNGS: Clear to auscultation. HEART: Regular rate and rhythm. ABDOMEN: Soft, nontender, nondistended. EXTREMITIES: No edema. PERTINENT LABORATORY DATA: Hemoglobin 14.2. Creatinine 0.81. Troponin negative. IMPRESSION: 1. Presyncope. 2. Severe coronary artery disease. 3. Severe ischemic cardiomyopathy. 4. Status post ICD. RECOMMENDATIONS: Ms. Tolentino's symptoms are likely secondary to volume depletion. We will agree with decreasing her Bumex. She would like to go home. She has had significant stressors recently. It would be okay from my standpoint to discharge home and we will follow up in 1 week. We will continue aspirin 81 q.a.m., Zetia 10 mg q.a.m. we will add low-dose Coreg 3.125 one p.o. b.i.d. Job ID: [id number]
[2019-09-25] MEDS: Aripiprazole 15 MG TAB PO SCH (09:28)
[2019-09-25] MEDS: Ezetimibe 10 MG TAB PO SCH (09:28)
[2019-09-25] MEDS: busPIRone HCl 5 MG TAB PO SCH (09:28)
[2019-09-25] MEDS: Baclofen 10 MG TAB PO SCH (09:29)
[2019-09-25] MEDS: hydrOXYzine 25 MG TAB PO SCH (09:29)
[2019-09-25] MEDS: Bumetanide 1 MG TAB PO SCH (09:29)
[2019-09-25] MEDS: Prasugrel 10 MG TAB PO SCH (09:30)
[2019-09-25] MEDS: Aspirin 81 mg Enteric Coated Tablet PO SCH (09:30)
[2019-09-25] MEDS: Pregabalin 75 MG CAP PO SCH (09:32)
[2019-09-25] MEDS: Heparin 5,000 UNITS/ML VIAL SC SCH (09:35)
[2019-09-25 12:43] VITALS: BP 127/90; TEMP 99
== END 2019-09-25 12:54 | disposition home or self-care (01) ==
LOC: ERS 22:50 → 2NO 09-24 01:28
PROVIDERS: ADMIT Internal Medicine; ATTEND Internal Medicine
DX: R42 Dizziness and giddiness (principal); I25.10 Atherosclerotic heart disease of native coronary artery without angina pectoris; I11.0 Hypertensive heart disease with heart failure; I50.9 Heart failure, unspecified; I25.5 Ischemic cardiomyopathy; E78.00 Pure hypercholesterolemia, unspecified; J45.909 Unspecified asthma, uncomplicated; F41.9 Anxiety disorder, unspecified; F31.9 Bipolar disorder, unspecified; Z88.1 Allergy status to other antibiotic agents; Z95.5 Presence of coronary angioplasty implant and graft; Z95.810 Presence of automatic (implantable) cardiac defibrillator
CPT/HCPCS: 36415; 71045; 80048; 80053; 81003; 81015; 83605; 83735; 84484; 84703; 85025; 87040; 87086; 93005; 93306; 96365; 96366; G0378; J0696; J1644; J3490

== ENCOUNTER 2019-11-06 08:39 | Emergency (ER) | payer OTHER ==
[2019-11-06] MEDS ORDERED: Dexamethasone 10 MG/ML VIAL ONE (08:54)
[2019-11-06] MEDS ORDERED: Ketorolac Tromethamine 30 MG/ML VIAL ONE (08:54)
[2019-11-06 10:13] LABS: Bacteria/HPF None Seen HPF (None Seen); Bilirubin Negative (Negative); Blood, Urine Trace (Negative); Clarity Clear (Clear); Glucose, Urine (Dipstick) Normal (Negative); Ketone, Urine Negative (Negative); Leukocyte Negative Leu/uL (Negative); Nitrite Negative (Negative); Protein, Urine (Dipstick) Negative (Neg-Trace); RBC/HPF 0-3 HPF (0-3); Specific Gravity, Urine 1.026 (1.002-1.036); Urobilinogen Normal mg/dL (Less than 2); WBC/HPF 0-3 HPF (0-3); pH, Urine 5.5 (5.0-9.0)
[2019-11-06 10:19] LABS: Pregnancy Test - Urine (BHCG) Negative (Negative); Pregu Control Background? CLEAR/WHITE (CLR/WHITE); Pregu Control Bar Appear? YES (CONTROL BAR); Specific Gravity 1.026 (1.002-1.036)
--- NOTE | 2019-11-06 10:51 | CT ---
Exam: Lumbar spine CT without contrast HISTORY: Left hip pain, radiating to the left leg x2 days. FINDINGS: Visualized lung bases are clear No abnormal attenuation with regards to the visualized alimentary canal, solid organs, cyst paraspina l muscles There appears to be a stent in the right common iliac artery Presacral fat is preserved There are 5 lumbar type vertebra. Lumbar spine vertebral body heights are maintained. There is no fra cture. No spondylolisthesis or spondylolysis. Vacuum joint phenomenon bilateral sacroiliac joints Visualized bony pelvis and sacrum are intact Sacral alar preserved T12-L1: Posterior decompressive throughout the lumbar spine. Laminectomy defect. No significant centr al canal stenosis or significant neural foraminal narrowing L1-L2: Posterior decompressive laminectomy defect. No significant central canal stenosis or significa nt neural foraminal narrowing L2-L3: Minimal broad-based disc bulge. No significant central canal stenosis or significant neural fo raminal narrowing L3-L4: Minimal broad-based disc bulge. Mild central canal stenosis. Patent bilateral neural foramina L4-L5: Minimal broad-based disc bulge. Mild central canal stenosis. Patent bilateral neural foramina L5-S1: Minimal broad-based disc bulge. No significant central canal stenosis or significant neural fo raminal narrowing IMPRESSION: 1. No fracture 2. Post surgical changes at T12-L1 and L1-L2. 3. No significant central canal stenosis or significant neural foraminal narrowing.
== END 2019-11-06 11:45 | disposition home or self-care (01) ==
LOC: ERS 08:39
DX: M54.16 Radiculopathy, lumbar region (principal); I11.0 Hypertensive heart disease with heart failure; I50.9 Heart failure, unspecified; I25.2 Old myocardial infarction; E78.5 Hyperlipidemia, unspecified; Z79.899 Other long term (current) drug therapy
CPT/HCPCS: 72131; 81003; 81015; 81025; 96372; J1100; J1885

== ENCOUNTER 2019-11-19 06:53 | Day surgery (SDC) | payer OTHER ==
--- NOTE | 2019-11-18 09:39 | HP ---
HISTORY OF PRESENT ILLNESS: Yana Tolentino is a 44-year-old black female, morbidly obese, 44 BMI, 250 pounds, 66 inches, has a recurrent incisional hernia supraumbilical. She initially was interested in surgical weight loss, went through a 3 month supervised weight loss program, but then developed symptoms probably related to her hernia and has since wanted to proceed with hernia repair so as to avoid an emergency visit. I have told her she would benefit from surgical weight loss even after the hernia repair. At this time, we will plan robotic mesh repair of recurrent incisional hernia. She understands risks and benefits, consents. She is followed by Dr. Burgos and has an appointment to see him in the next 10 days. We will call his office to try to get her in to see him sooner. She will need cardiac clearance prior to that operation. The patient surgically has undergone 3 C-sections, Pfannenstiel incision, inguinal hernia repair without mesh in 1997, umbilical hernia with [place] [address] Tobin and then I saw her in 2010 for recurrent hernia incarcerated, undergoing laparoscopic reduction and repair with mesh Proceed 5 x 10 cm. At that time, the patient weighed 96 kg. Today, she is 250 pounds, 66 inches, 44 BMI. Plan is for robotic mesh repair of recurrent incisional hernia above area. MEDICATIONS: 1. Atorvastatin. 2. Geodon. 3. Isosorbide. 4. Effient. 5. Carvedilol. 6. Lisinopril. 7. Bumex. 8. Albuterol sulfate. 9. Zetia. 10. Crestor. 11. Hydroxyzine. 12. Bumex. 13. Carvedilol. 14. Klor-Con. 15. Entresto. 16. Aspirin. PAST MEDICAL HISTORY: 1. Echocardiogram on 10/06/2019 with 30% to 35% ejection fraction, mild tricuspid and mitral regurgitation. 2. On 01/01/2019 Dr. Daily placed a central line, placement of cardiac stent, defibrillator. 3. Congestive heart failure, hyperlipidemia, coronary artery disease, bipolar illness, hypertension. SOCIAL HISTORY: Tobacco, former. Smoking cessation more than 4 years ago. The patient lives alone. She is unemployed. She is single. She has 3 children. She stopped smoking in 2010, restarted in 2018, but stopped in September 2018. PHYSICAL EXAMINATION: HEAD, EARS, EYES, NOSE, AND THROAT: Unremarkable. LUNGS: Clear to auscultation. CARDIAC: Regular rate and rhythm without murmur or gallop. ABDOMEN: Soft, obese, nontender. Incisional hernia, supraumbilical. EXTREMITIES: Unremarkable. No ankle edema. ASSESSMENT AND PLAN: 1. Recurrent incisional hernia. The patient is having symptoms and wished to have this repaired as soon as possible to avoid emergency room visit. I think this is reasonable. Plan robotic mesh repair of incisional hernia. She understands risks and benefits, consents. 2. Coronary artery disease, congestive failure, defibrillator. Await cardiac clearance by Dr. Burgos. 3. Other medical problems as noted above. Job ID: [id number]
[2019-11-19] MEDS ORDERED: Ketorolac Tromethamine 30 MG/ML VIAL ONE (08:01)
[2019-11-19] MEDS ORDERED: Acetaminophen 500 MG TAB ONE (08:01)
[2019-11-19] MEDS ORDERED: Midazolam HCl 2 mg/2 ml Vial ONE ×2 (08:53→09:15)
[2019-11-19] MEDS ORDERED: Bupivacaine 0.25% HCL 30 ML VIAL ONE (09:09)
[2019-11-19] MEDS ORDERED: Lidocaine 1% w/Epinephrine 1:100K 20 ML VIAL ONE (09:09)
[2019-11-19] MEDS ORDERED: Fentanyl 100 MCG/2 ML VIAL ONE ×3 (09:15→11:49)
[2019-11-19] MEDS ORDERED: PROPOFOL 200 MG/20 ML VIAL ONE (10:20)
[2019-11-19] MEDS ORDERED: Esmolol 100 MG/10 ML VIAL ONE (10:20)
[2019-11-19] MEDS ORDERED: Lidocaine 1% PF 5 ML VIAL ONE (10:20)
[2019-11-19] MEDS ORDERED: Ondansetron PF 4 MG/2 ML Vial ONE (10:20)
[2019-11-19] MEDS ORDERED: Rocuronium Bromide 10 MG/ML (10ML VIAL) ONE (10:20)
[2019-11-19] MEDS ORDERED: Glycopyrrolate 0.2 MG/ML 5 ML SYRINGE ONE (10:20)
[2019-11-19] MEDS ORDERED: SUGAMMADEX SODIUM 200 MG/2 ML VIAL ONE (10:57)
[2019-11-19 11:51] LABS: Bacteria/HPF None Seen HPF (None Seen); Bilirubin Negative (Negative); Blood, Urine 1+ (Negative); Clarity Extra Turbid (Clear); Glucose, Urine (Dipstick) Normal (Negative); Ketone, Urine Negative (Negative); Leukocyte Negative Leu/uL (Negative); Nitrite Negative (Negative); Protein, Urine (Dipstick) 10 mg/dL (Neg-Trace); Specific Gravity, Urine 1.029 (1.002-1.036); Squamous Epithelial 0-3 HPF (0-3); Urobilinogen Normal mg/dL (Less than 2); WBC/HPF 0-3 HPF (0-3); pH, Urine 5.5 (5.0-9.0)
[2019-11-19] MEDS ORDERED: HYDROcodone/Acetaminophen 5/325 mg Tablet ONE (11:59)
--- NOTE | 2019-11-19 17:58 | OP ---
DATE OF PROCEDURE: 11/19/2019 PREOPERATIVE DIAGNOSES: Morbid obesity; incisional hernia, recurrent. POSTOPERATIVE DIAGNOSES: Morbid obesity; incisional hernia, recurrent. PROCEDURES PERFORMED: Robot/laparoscopic adhesiolysis; repair of incisional hernia with 8 cm mesh, Ventralight; reinforcement of fascial closure. Note, the patient had incarcerated omentum reduced, her previous hernia repair seemed to be intact in the midline. This seemed to be a new incisional hernia to the left of the umbilicus. ANESTHESIA: General anesthesia, local with 0.5% Marcaine 30 mL mixed with 1% Xylocaine with epinephrine 20 mL. DESCRIPTION OF PROCEDURE: The patient was taken to the operating room, where under general anesthesia, Negron catheter was placed at the beginning of the procedure and removed at the end. Of note is that the patient had urine with sediment and was sent for culture. If she does have UTI, it was preexisting. Local anesthetic mixture was infiltrated into the skin and subcutaneous tissue about each port site, around the hernia repair, left of midline umbilical area. Left subxiphoid incision was made. Pneumoperitoneum to 15 mmHg obtained with a Veress needle, replaced with an 11 mm balloon port. Bilateral subcostal far lateral incision was made and 8 mm ports placed. Robot was docked, connected, and once connected, robot incisional hernia repair undertaken. There was omentum adherent to the abdominal wall, taken down, freeing the area of the hernia. In the midline, there was evidence of previous mesh and sutures, and the hernia repairs in the midline were tacked, to the left of midline, there was an area of a 3 cm defect with incarcerated omentum. This was reduced using cautery energy source for hemostasis, reducing the omentum from the hernia sac. It was palpated and soft now, whereas it was firm preoperatively. The 8 cm mesh obtained, trimmed to size, placed in the abdominal cavity along with sutures. #1 V-Loc suture closed the hernia defect with two rows to and fro and then the mesh secured, reducing pneumoperitoneum to 11 mmHg, securing the mesh with remaining #1 V-Loc suture and then using 2-0 V-Loc suture to complete the perimeter attachments to the fascia, peritoneum. Once this was completed, sutures removed and pneumoperitoneum reduced. All instruments were removed and all skin incisions were approximated with interrupted subdermal 4-0 Monocryl and [place] glue applied. The patient tolerated the procedure well. Job ID: [id number]
== END 2019-11-19 13:40 | disposition home or self-care (01) ==
LOC: SDC 06:53
PROVIDERS: ATTEND Specialist
PROC: 0WUF4JZ Supplement Abdominal Wall with Synthetic Substitute, Percutaneous Endoscopic Approach (ICD-10-PCS; principal; 2019-11-19)
PROC: 0DNE4ZZ Release Large Intestine, Percutaneous Endoscopic Approach (ICD-10-PCS; principal; 2019-11-19)
DX: K43.2 Incisional hernia without obstruction or gangrene (principal); E66.01 Morbid (severe) obesity due to excess calories; I25.10 Atherosclerotic heart disease of native coronary artery without angina pectoris; I50.9 Heart failure, unspecified; E78.5 Hyperlipidemia, unspecified; F31.9 Bipolar disorder, unspecified; Z68.41 Body mass index [BMI] 40.0-44.9, adult; Z79.82 Long term (current) use of aspirin; Z79.899 Other long term (current) drug therapy; Z87.891 Personal history of nicotine dependence; Z88.1 Allergy status to other antibiotic agents; Z95.810 Presence of automatic (implantable) cardiac defibrillator; Z95.5 Presence of coronary angioplasty implant and graft
CPT/HCPCS: 81001; 87086; C1781; J0690; J1885; J2250; J2405; J2704; J3010; S0020

== ENCOUNTER 2020-07-01 10:32 | Outpatient (CLI) | payer OTHER ==
[2020-07-01] MEDS ORDERED: Iopamidol-370 76% 500 ML 1 ML ONE (13:01)
== END 2020-07-01 10:33 | disposition home or self-care (01) ==
LOC: BICCT 10:32
PROVIDERS: ATTEND Internal Medicine Cardiovascular Disease
DX: I73.9 Peripheral vascular disease, unspecified (principal); I77.77 Dissection of artery of lower extremity
CPT/HCPCS: 75635; Q9967

== ENCOUNTER 2022-02-20 02:00 | Inpatient (IN) | payer OTHER ==
[2022-02-20] MEDS ORDERED: FENTANYL 50 MCG/ML 1 ML VIAL ONE ×2 (02:29→03:02)
[2022-02-20 02:33] LABS: #Basophils 0.1 thou/uL (0.0-0.2); #Eosinphils 0.4 thou/uL (0.0-0.7); #Lymphocytes 4.8 thou/uL (1.20-3.40); #Monocytes 0.7 thou/uL (0.11-0.59); #Neutrophils 5.9 thou/uL (1.40-6.50); %Basophils 0.7 % (0.0-1.0); %Eosinophils 3.1 % (0.0-10.0); %Lymphocytes 40.8 % (21.0-51.0); %Monocytes 5.5 % (0.0-10.0); %Neutrophils 49.8 % (42.0-75.0); Hemoglobin 13.9 g/dL (12.0-16.0); Mean Corpuscular HGB CONC 34.7 g/dL (32.0-36.0); Mean Corpuscular Hemoglobin 30.6 pg (27.0-31.0); Platelet Count 211 10x3/uL (130-400); RBC Distribution Width 12.9 % (11.5-14.5); Red Blood Cell (RBC) Count 4.54 mill/uL (4.20-5.40); White Blood Cell (WBC) Count 11.8 10x3/uL (4.8-10.8)
[2022-02-20 02:36] LABS: INR-International Normal Ratio 1.1; Prothrombin Time 14.3 sec (12.0-14.7)
[2022-02-20 02:37] LABS: PTT 93.9 sec (22.9-36.1)
[2022-02-20 02:45] LABS: ALT (SGPT) 8 U/L (8-55); AST (SGOT) 10 U/L (5-34); Albumin 3.9 g/dL (3.5-5.0); Alkaline Phosphatase 75 U/L (40-110); Anion Gap 15 mmol/L (10-20); BUN (Urea Nitrogen) 19 mg/dL (7.0-18.7); Bilirubin, Total 0.2 mg/dL (0.2-1.2); Calc. Creatinine Clearance 0 mL/min (70-130); Carbon Dioxide 24 mmol/L (22-29); Chloride 104 mmol/L (98-107); Estimated GFR 66; Globulin 3.4 g/dL (2.4-3.5); Glucose 120 mg/dL (70-105); Protein, Total 7.3 g/dL (6.0-8.3); Sodium 139 mmol/L (136-145)
[2022-02-20] MEDS ORDERED: Atropine Sulfate 1 mg/10 ml Syringe ONE (03:24)
[2022-02-20] MEDS ORDERED: TICAGRELOR 90 MG TABLET ONE (03:47)
[2022-02-20] MEDS ORDERED: Morphine 4 MG/ML VIAL SLOW IVP PRN (04:14)
[2022-02-20] MEDS ORDERED: Acetaminophen/Codeine 30-300mg Tablet PO PRN (04:14)
[2022-02-20] MEDS ORDERED: Milk Of Magnesia 30 ML UDCUP PO PRN (04:14)
[2022-02-20] MEDS ORDERED: Mag-Al 1200 mg/1200 mg/30 ML UDCUP PO PRN (04:14)
[2022-02-20] MEDS ORDERED: traMADol HCl 50 MG TAB PO PRN (04:14)
[2022-02-20] MEDS ORDERED: Sodium Chloride 0.9% 500 ML IV SCH (04:45)
[2022-02-20 05:17] VITALS: BMI 43.0
[2022-02-20 05:50] LABS: Troponin I 4.597 ng/mL (< 0.028)
[2022-02-20 05:52] LABS: CKMB 46.7 ng/mL (0-6.6)
[2022-02-20 07:53] LABS: SARS-CoV-2 NAA Rapid Test DETECTED (NotDetected)
[2022-02-20] MEDS: Aspirin Chewable 81 MG TAB PO SCH (10:11)
[2022-02-20] MEDS: Prasugrel 10 MG TAB PO SCH (10:11)
[2022-02-20] MEDS ORDERED: Iopamidol 370 76% 100 ML VIAL ONE ×2 (10:38→15:50)
[2022-02-20] MEDS ORDERED: Albuterol 200 PUFF (6.7GM INHALER) INH PRN (10:46)
[2022-02-20 11:16] LABS: CKMB 69.8 ng/mL (0-6.6)
[2022-02-20 11:30] LABS: Troponin I 13.876 ng/mL (< 0.028)
[2022-02-20] MEDS: Mometasone 200 MCG/Formoterol 5 MCG 120 PUFF INHALER INH SCH (18:37)
[2022-02-20] MEDS: Enoxaparin Sodium 30 MG/0.3 ML SYRINGE SC SCH (20:03)
[2022-02-20] MEDS: Rosuvastatin 20 MG TAB PO SCH (20:03)
[2022-02-21 04:20] LABS: #Eosinphils 0.3 thou/uL (0.0-0.7); #Lymphocytes 2.6 thou/uL (1.20-3.40); #Monocytes 0.6 thou/uL (0.11-0.59); %Basophils 0.2 % (0.0-1.0); %Eosinophils 2.9 % (0.0-10.0); %Lymphocytes 27.7 % (21.0-51.0); %Monocytes 6.1 % (0.0-10.0); %Neutrophils 63.1 % (42.0-75.0); Hemoglobin 12.7 g/dL (12.0-16.0); Mean Corpuscular HGB CONC 33.3 g/dL (32.0-36.0); Mean Corpuscular Volume 86.9 fl (78.0-98.0); Platelet Count 184 10x3/uL (130-400); Red Blood Cell (RBC) Count 4.37 mill/uL (4.20-5.40); White Blood Cell (WBC) Count 9.5 10x3/uL (4.8-10.8)
[2022-02-21 04:47] LABS: ALT (SGPT) 12 U/L (8-55); AST (SGOT) 35 U/L (5-34); Albumin 3.5 g/dL (3.5-5.0); Alkaline Phosphatase 70 U/L (40-110); Anion Gap 12 mmol/L (10-20); BUN (Urea Nitrogen) 12 mg/dL (7.0-18.7); Bilirubin, Total 0.5 mg/dL (0.2-1.2); Calc. Creatinine Clearance 165 mL/min (70-130); Calcium 8.6 mg/dL (7.8-10.44); Carbon Dioxide 22 mmol/L (22-29); Chloride 106 mmol/L (98-107); Estimated GFR 96; Glucose 100 mg/dL (70-105); Protein, Total 6.5 g/dL (6.0-8.3); Sodium 136 mmol/L (136-145)
[2022-02-21] MEDS: Mometasone 200 MCG/Formoterol 5 MCG 120 PUFF INHALER INH SCH (08:07)
[2022-02-21] MEDS: Aspirin Chewable 81 MG TAB PO SCH (09:50)
[2022-02-21] MEDS: Prasugrel 10 MG TAB PO SCH (09:50)
[2022-02-21] MEDS: Rosuvastatin 20 MG TAB PO SCH (21:50)
[2022-02-21] MEDS: Zolpidem Tartrate 5 MG TAB PO PRN (21:50)
[2022-02-21] MEDS: Enoxaparin Sodium 30 MG/0.3 ML SYRINGE SC SCH (21:50)
[2022-02-22] MEDS: Mometasone 200 MCG/Formoterol 5 MCG 120 PUFF INHALER INH SCH ×3 (07:36→21:15)
[2022-02-22] MEDS: Prasugrel 10 MG TAB PO SCH (08:54)
[2022-02-22] MEDS: Aspirin Chewable 81 MG TAB PO SCH (08:54)
[2022-02-22] MEDS ORDERED: Aripiprazole 15 MG TAB PO SCH (13:30)
[2022-02-22] MEDS ORDERED: busPIRone HCl 5 MG TAB PO SCH (13:30)
[2022-02-22] MEDS: hydrOXYzine 25 MG TAB PO SCH ×3 (13:50→21:16)
[2022-02-22] MEDS: busPIRone HCl 5 MG TAB PO SCH ×2 (15:09→21:17)
[2022-02-22] MEDS: Zolpidem Tartrate 5 MG TAB PO PRN (21:16)
[2022-02-22] MEDS: Enoxaparin Sodium 40 MG/0.4 ML SYRINGE SC SCH (21:17)
[2022-02-22] MEDS: Rosuvastatin 20 MG TAB PO SCH (21:17)
[2022-02-23 04:37] VITALS: BP 107/65; TEMP 98
[2022-02-23] MEDS: Mometasone 200 MCG/Formoterol 5 MCG 120 PUFF INHALER INH SCH (06:46)
[2022-02-23] MEDS ORDERED: Aripiprazole 15 MG TAB PO SCH (09:00)
[2022-02-23] MEDS: Aspirin Chewable 81 MG TAB PO SCH (12:00)
[2022-02-23] MEDS: busPIRone HCl 5 MG TAB PO SCH (12:00)
[2022-02-23] MEDS: Prasugrel 10 MG TAB PO SCH (12:01)
[2022-02-23] MEDS: Enoxaparin Sodium 40 MG/0.4 ML SYRINGE SC SCH (12:01)
[2022-02-23] MEDS: hydrOXYzine 25 MG TAB PO SCH (12:01)
== END 2022-02-23 12:20 | disposition home or self-care (01) | DRG 246 ==
LOC: ERS 02:00 → SDC/OP 02:37 → CCU 04:14 → 2NO 02-21 16:01
PROVIDERS: ADMIT Internal Medicine Cardiovascular Disease; ATTEND Internal Medicine Cardiovascular Disease
PROC: 027034Z Dilation of Coronary Artery, One Artery with Drug-eluting Intraluminal Device, Percutaneous Approach (ICD-10-PCS; principal; 2022-02-20)
PROC: 4A023N7 Measurement of Cardiac Sampling and Pressure, Left Heart, Percutaneous Approach (ICD-10-PCS; 2022-02-20)
PROC: B2151ZZ Fluoroscopy of Left Heart using Low Osmolar Contrast (ICD-10-PCS; 2022-02-20)
PROC: B2111ZZ Fluoroscopy of Multiple Coronary Arteries using Low Osmolar Contrast (ICD-10-PCS; 2022-02-20)
PROC: 8E0ZXY6 Isolation (ICD-10-PCS; 2022-02-20)
DX: I21.19 ST elevation (STEMI) myocardial infarction involving other coronary artery of inferior wall (principal); U07.1 COVID-19; I42.8 Other cardiomyopathies; T82.855A Stenosis of coronary artery stent, initial encounter; I25.10 Atherosclerotic heart disease of native coronary artery without angina pectoris; E78.5 Hyperlipidemia, unspecified; I10 Essential (primary) hypertension; J45.909 Unspecified asthma, uncomplicated; I34.0 Nonrheumatic mitral (valve) insufficiency; I73.9 Peripheral vascular disease, unspecified; Y83.1 Surgical operation with implant of artificial internal device as the cause of abnormal reaction of the patient, or of later complication, without mention of misadventure at the time of the procedure; Z95.810 Presence of automatic (implantable) cardiac defibrillator; Z79.899 Other long term (current) drug therapy; Z79.82 Long term (current) use of aspirin; Z88.1 Allergy status to other antibiotic agents; Z95.5 Presence of coronary angioplasty implant and graft
CPT/HCPCS: 36415; 71045; 80053; 82553; 83880; 84484; 85025; 85347; 85610; 85730; 92941; 93005; 93010; 93458; 93798; 96374; 96375; C1769; C1876; C1887; C9606; J0461; J1644; J1650; J3010; J7030; Q9967; U0002

== ENCOUNTER 2022-10-24 19:00 | Outpatient (CLI) | payer OTHER | END 2022-10-24 19:01 | disposition home or self-care (01) | LOC: SLEEPLAB 19:00 | PROVIDERS: ATTEND Family Medicine | DX: G47.33 Obstructive sleep apnea (adult) (pediatric) (principal); G47.9 Sleep disorder, unspecified; R53.83 Other fatigue; R51.9 Headache, unspecified; R06.83 Snoring; J44.9 Chronic obstructive pulmonary disease, unspecified; I11.0 Hypertensive heart disease with heart failure; I50.9 Heart failure, unspecified; I25.10 Atherosclerotic heart disease of native coronary artery without angina pectoris; F32.A Depression, unspecified; G47.00 Insomnia, unspecified | CPT/HCPCS: 95810 ==

== ENCOUNTER 2025-01-29 14:33 | Outpatient (CLI) | payer MEDICAID | END 2025-01-29 14:34 | disposition home or self-care (01) | LOC: RAD 14:33 | PROVIDERS: ATTEND Physician Assistant | DX: I50.22 Chronic systolic (congestive) heart failure (principal) | CPT/HCPCS: 71046 ==